=== PATIENT | male | born 1950 | race Caucasian/White ===

== ENCOUNTER 2018-10-31 12:02 | Outpatient (CLI) | payer MEDICARE, OTHER ==
[2018-10-31 18:51] LABS: BASOPHILS % (AUTO) 0.6 %; EOSINOPHILS # (AUTO) 0.1 10^3/uL (0.0-0.7); EOSINOPHILS % (AUTO) 1.9 %; HGB - HEMOGLOBIN 16.7 g/dL (14.0-18.0); LYMPHOCYTES # (AUTO) 1.8 10^3/uL (1.5-3.5); LYMPHOCYTES % (AUTO) 28.7 %; MEAN CORPUSCULAR HEMOGLOBIN 30.7 pg (27.0-31.0); MEAN CORPUSCULAR HGB CONC 33.2 g/dL (32.0-36.0); MEAN CORPUSCULAR VOLUME 92.6 fL (80.0-94.0); MEAN PLATELET VOLUME 8.9 fL (7.4-11.4); MONOCYTES # (AUTO) 0.4 10^3/uL (0.0-1.0); MONOCYTES % (AUTO) 6.9 %; NEUTROPHILS # (AUTO) 3.8 10^3/uL (1.5-6.6); NEUTROPHILS % (AUTO) 61.9 %; PLT - PLATELET COUNT 243 10^3/uL (130-450); RED BLOOD COUNT 5.43 10^6/uL (4.70-6.10); RED CELL DISTRIBUTION WIDTH 13.9 % (12.0-15.0); WHITE BLOOD COUNT 6.1 x10^3/uL (4.8-10.8)
[2018-10-31 19:10] LABS: ALBUMIN 4.8 g/dL (3.2-5.5); ALBUMIN/GLOBULIN RATIO 1.5 (1.0-2.2); ALKALINE PHOSPHATASE 81 IU/L (42-121); ALT ALANINE AMINOTRANSFERASE 23 IU/L (10-60); AST ASPARTATE AMINOTRANSFERASE 31 IU/L (10-42); BILIRUBIN,TOTAL 1.1 mg/dL (0.2-1.0); BUN - BLOOD UREA NITROGEN 18 mg/dL (6-20); CALCIUM 9.3 mg/dL (8.5-10.3); CARBON DIOXIDE - CO2 24 mmol/L (21-32); CHLORIDE 104 mmol/L (101-111); CHOL/HDL RATIO 4.7 (<5.0); CHOLESTEROL 247 mg/dL; GFR - MDRD 75 (>89); GLUCOSE 105 mg/dL (70-100); HDL CHOLESTEROL 53 mg/dL; LDL CHOLESTEROL,CALCULATED 168 mg/dL; LDL/HDL RATIO 3.2 (<3.6); SODIUM 134 mmol/L (135-145); TOTAL PROTEIN 7.9 g/dL (6.7-8.2); VLDL CHOLESTEROL 26 mg/dL
== END 2018-10-31 23:59 | disposition home or self-care (01) ==
LOC: LAB.WCP 12:02
PROVIDERS: ATTEND Nurse Practitioner
DX: Z00.00 Encounter for general adult medical examination without abnormal findings (principal); Z13.220 Encounter for screening for lipoid disorders; Z12.5 Encounter for screening for malignant neoplasm of prostate
CPT/HCPCS: 36415; 80053; 80061; 83721; 84153; 84443; 85025

== ENCOUNTER 2020-02-06 08:00 | Outpatient (CLI) | payer MEDICARE, OTHER | END 2020-02-06 23:59 | disposition home or self-care (01) | LOC: LAB.R 08:00 | PROVIDERS: ATTEND Nurse Practitioner | DX: J06.9 Acute upper respiratory infection, unspecified (principal) | CPT/HCPCS: 81599; U0002 ==

== ENCOUNTER 2020-08-27 13:02 | Emergency (ER) | payer MEDICARE, OTHER ==
[2020-08-27] MEDS ORDERED: RABIES VACCINE 2.5 UNIT SYRINGE IM ONE (13:37)
[2020-08-27] MEDS ORDERED: RABIES IMMUNE GLOBULIN 300 UNITS/2 ML IM STA (13:37)
--- NOTE | 2020-08-27 13:42 | ED Physician Documentation ---
History of Present Illness - Stated complaint Stated Complaint: BAT EXPOSURE - Chief complaint Chief Complaint: General - Additonal information Additional information: 69-year-old male presents to the emergency department for evaluation and t reatment of what he feels is a bat bite on his left medial ankle. He reports this morning he was in his barn attempting to grab something from a shelf. He felt a sharp bite or sting on the left ankle and did not think anything of it. When he walked back to the house he felt his ankle was more painful. He looked down and saw 2 small what he feels are puncture wounds. He discussed this incident with his neighbor and the neighbor felt he was likely bitten by a bat. It should be noted that his neighbor recently received the rabies vaccine and immunoglobulin after he was bitten by a bat when he reached into a wood pile. This gentleman has no history of previous rabies vaccination or bat exposure. He denies any history of coronary artery disease or diabetes. He takes no routinely prescribed medications. He otherwise feels well at this time Review of Systems Constitutional: reports: Reviewed and negative Eyes: reports: Reviewed and negative Ears: reports: Reviewed and negative Nose: reports: Reviewed and negative Throat: reports: Reviewed and negative Cardiac: reports: Reviewed and negative Respiratory: reports: Reviewed and negative GI: reports: Reviewed and negative : reports: Reviewed and negative Skin: reports: Lesions (left medial ankle) Musculoskeletal: reports: Neck pain Neurologic: reports: Reviewed and negative PD PAST MEDICAL HISTORY - Past Surgical History Past Surgical History: No - Allergies Allergies/Adverse Reactions: Allergies Allergy/AdvReac Type Severity Reaction Status Date / Time No Known Drug Allergies Allergy Verified 08/27/20 13:09 - Social History Does the pt smoke?: No Smoking Status: Never smoker Does the pt drink ETOH?: Yes Does the pt have substance abuse?: No - Immunizations Immunizations are current?: Yes - POLST Patient has POLST: No PD ED PE NORMAL - General General: Alert and oriented X 3, No acute distress - HEENT HEENT: PERRL - Cardiac Cardiac: RRR, No murmur - Respiratory Respiratory: Clear bilaterally - Abdomen Abdomen: Normal bowel sounds, Soft, Non tender, Non distended - Derm Derm: Normal color, Warm and dry, Other (2 small pinpoint lesions about 0.25 cm apart on left medial malleolous. no surrounding swelling, erythema, ecchymosis or blood) - Extremities Extremities: No deformity - Neuro Neuro: Alert and oriented X 3 Results - Vitals Vitals: Vital Signs - 24 hr 08/27/20 13:10 Temperature 36.8 C Heart Rate 71 Respiratory 16 Rate Blood Pressure 178/85 H O2 Saturation 96 Oxygen O2 Source Room air PD MEDICAL DECISION MAKING - ED course Complexity details: re-evaluated patient, considered differential, d/w patient ED course: 69-year-old male presents to the emergency department following what he feels was a bat bite or exposure on his left medial ankle. Here in the emergency department I personally administered the rabies immunoglobulin 1 mL subcutaneously around the site of the suspected bat bite. I also administered the rest of the volume 10.4 mL in separate spaces on his left leg the left calf and thigh. RN administered the rabies vaccine in his right arm. Patient has been given a written prescription for the remaining postexposure vaccines that he may be able to fill at [facility]. Patient was notified that if he is unable to fill the vaccines on the dates prescribed he is to return to the emergency department. Departure - Departure Disposition: 01 Home, Self Care Clinical Impression: Exposure to bat without known bite Condition: Stable Record reviewed to determine appropriate education?: Yes Comments: Glen I hope that you remain well. Today in the emergency department we have initiated you on the post bat exposure prophylaxis. You received the rabies immunoglobulin and multiple separate injections in your left leg. You also received the rabies vaccine in your right arm. It is important that you go to [facility] on August 30, , and the in order to receive your 3 remaining rabies vaccinations. If for what ever reason [facility] is unable to fill the rabies vaccine then please return to the emergency department.
[2020-08-27 14:31] VITALS: BP 185/99
== END 2020-08-27 14:31 | disposition home or self-care (01) ==
LOC: ED 13:02
DX: Z20.3 Contact with and (suspected) exposure to rabies (principal)
CPT/HCPCS: 90471; 96372; 99283

== ENCOUNTER 2020-08-30 10:21 | Emergency (ER) | payer MEDICARE, OTHER ==
[2020-08-30] MEDS ORDERED: RABIES VACCINE 2.5 UNIT SYRINGE IM ONE (10:26)
--- NOTE | 2020-08-30 10:58 | ED Physician Documentation ---
History of Present Illness - Stated complaint Stated Complaint: BAT EXPOSURE - Chief complaint Chief Complaint: General - History obtained from History obtained from: Patient - History of Present Illness Timing: How many days ago (3) - Additonal information Additional information: 69-year-old male with a bat bite to his ankle 3 days ago had his initial dose of RabAvert adn immunoglobulin given in the emergency department and he was instructed to get the further doses at [facility] and the patient has made arrangements to do this but they will not have the dose available until Tuesday. He is here for his day 3 dose. He has no specific new symptoms and otherwise feels well. Review of Systems Constitutional: denies: Fever Eyes: denies: Decreased vision Ears: denies: Ear pain Nose: denies: Congestion Respiratory: denies: Cough GI: denies: Vomiting, Diarrhea PD PAST MEDICAL HISTORY - Past Medical History Cardiovascular: None Respiratory: None Neuro: None Endocrine/Autoimmune: None GI: None : None HEENT: None Psych: None Musculoskeletal: None Derm: None - Past Surgical History Past Surgical History: Yes General: Appendectomy Ortho: Arthroscopic surgery - Allergies Allergies/Adverse Reactions: Allergies Allergy/AdvReac Type Severity Reaction Status Date / Time No Known Drug Allergies Allergy Verified 08/27/20 13:09 - Social History Does the pt smoke?: No Smoking Status: Never smoker Does the pt drink ETOH?: Yes Does the pt have substance abuse?: No - Immunizations Immunizations are current?: Yes - POLST Patient has POLST: No PD ED PE NORMAL - Vitals Vital signs reviewed: Yes (hypertensive ) - General General: Alert and oriented X 3, No acute distress, Well developed/nourished - HEENT HEENT: Atraumatic, PERRL - Respiratory Respiratory: No respiratory distress - Derm Derm: Normal color, Warm and dry, No rash - Extremities Extremities: No deformity, No edema - Neuro Neuro: Alert and oriented X 3, scientist electronics 2-12 intact, No motor deficit, No sensory deficit, Normal speech Eye Opening: Spontaneous Motor: Obeys Commands Verbal: Oriented GCS Score: 15 - Psych Psych: Normal mood, Normal affect Results - Vitals Vitals: Vital Signs - 24 hr 08/30/20 08/30/20 10:35 10:45 Temperature 36.8 C Heart Rate 68 65 Respiratory 16 Rate Blood Pressure 187/110 H 180/116 H O2 Saturation 97 95 Oxygen O2 Source Room air PD MEDICAL DECISION MAKING - ED course Complexity details: considered differential, d/w patient ED course: 69-year-old male with a bat exposure is administered a second dose of RabAvert. 2.5units Departure - Departure Disposition: 01 Home, Self Care Clinical Impression: Exposure to bat without known bite Condition: Stable Instructions: Rabies Vaccine suspension for injection Follow-Up: Margarita Latif ARNP, [facility] [Primary Care Provider] -
[2020-08-30 11:18] VITALS: BP 170/110
== END 2020-08-30 11:17 | disposition home or self-care (01) ==
LOC: ED 10:21
DX: Z20.3 Contact with and (suspected) exposure to rabies (principal)
CPT/HCPCS: 90471; 99283

== ENCOUNTER 2020-09-03 11:12 | Emergency (ER) | payer MEDICARE, OTHER ==
[2020-09-03 11:31] VITALS: BP 174/95
[2020-09-03] MEDS ORDERED: RABIES VACCINE 2.5 UNIT SYRINGE IM ONE (11:34)
--- NOTE | 2020-09-03 11:40 | ED Physician Documentation ---
History of Present Illness - Stated complaint Stated Complaint: BAT EXPOSURE/FOLLOW UP - Chief complaint Chief Complaint: General - Additonal information Additional information: 69-year-old male presents to the emergency department for continuation of his rabies vaccination series. He was seen initially on August 27 for what he felt was a bat bite on his left medial ankle. Initial visit included rabies immunoglobulin and the vaccine. He returned on 30 August and is here today for the 3rd of the 4 total rabies vaccinations he will require otherwise Patient reports feeling well otherwise. Review of Systems Constitutional: reports: Reviewed and negative Ears: reports: Reviewed and negative Nose: reports: Reviewed and negative Throat: reports: Reviewed and negative Cardiac: reports: Reviewed and negative Respiratory: reports: Reviewed and negative GI: reports: Reviewed and negative : reports: Reviewed and negative Skin: denies: Lesions Musculoskeletal: reports: Reviewed and negative PD PAST MEDICAL HISTORY - Past Medical History Cardiovascular: None Respiratory: None Neuro: None Endocrine/Autoimmune: None GI: None : None HEENT: None Psych: None Musculoskeletal: None Derm: None - Past Surgical History Past Surgical History: Yes General: Appendectomy Ortho: Arthroscopic surgery - Allergies Allergies/Adverse Reactions: Allergies Allergy/AdvReac Type Severity Reaction Status Date / Time No Known Drug Allergies Allergy Verified 09/03/20 11:30 - Social History Does the pt smoke?: No Smoking Status: Never smoker Does the pt drink ETOH?: Yes Does the pt have substance abuse?: No - Immunizations Immunizations are current?: Yes - POLST Patient has POLST: No PD ED PE NORMAL - General General: Alert and oriented X 3, No acute distress - HEENT HEENT: PERRL - Cardiac Cardiac: RRR, No murmur - Derm Derm: Warm and dry Results - Vitals Vitals: Vital Signs - 24 hr 09/03/20 11:20 Temperature 36.6 C Heart Rate 65 Respiratory 16 Rate Blood Pressure 174/95 H O2 Saturation 98 Oxygen O2 Source Room air PD MEDICAL DECISION MAKING - ED course Complexity details: d/w patient ED course: Patient received his third of for ultimate rabies vaccinations today. He will require the final one on September 10. Patient is well otherwise. Departure - Departure Disposition: 01 Home, Self Care Clinical Impression: Rabies exposure Condition: Stable Record reviewed to determine appropriate education?: Yes Comments: You received your third of the total four required doses of rabies vaccination today. Your final dose should be administered on September 10 here in the emergency department. I wish you well
== END 2020-09-03 12:05 | disposition home or self-care (01) ==
LOC: ED 11:12
DX: Z29.14 Encounter for prophylactic rabies immune globulin (principal); Z20.3 Contact with and (suspected) exposure to rabies
CPT/HCPCS: 90471; 99283

== ENCOUNTER 2020-09-10 09:29 | Outpatient (CLI) | payer MEDICARE, OTHER ==
[2020-09-10 09:49] LABS: BASOPHILS % (AUTO) 0.5 %; EOSINOPHILS # (AUTO) 0.2 10^3/uL (0.0-0.7); EOSINOPHILS % (AUTO) 4.2 %; HGB - HEMOGLOBIN 16.5 g/dL (14.0-18.0); LYMPHOCYTES # (AUTO) 1.4 10^3/uL (1.5-3.5); LYMPHOCYTES % (AUTO) 24.2 %; MEAN CORPUSCULAR HEMOGLOBIN 30.9 pg (27.0-31.0); MEAN CORPUSCULAR VOLUME 88.2 fL (80.0-94.0); MEAN PLATELET VOLUME 9.7 fL (7.4-11.4); MONOCYTES # (AUTO) 0.4 10^3/uL (0.0-1.0); MONOCYTES % (AUTO) 7.4 %; NEUTROPHILS # (AUTO) 3.6 10^3/uL (1.5-6.6); NEUTROPHILS % (AUTO) 63.3 %; PLT - PLATELET COUNT 271 10^3/uL (130-450); RED BLOOD COUNT 5.34 10^6/uL (4.70-6.10); RED CELL DISTRIBUTION WIDTH 12.9 % (12.0-15.0); WHITE BLOOD COUNT 5.7 x10^3/uL (4.8-10.8)
[2020-09-10 10:12] LABS: ALBUMIN 4.3 g/dL (3.2-5.5); ALBUMIN/GLOBULIN RATIO 1.4 (1.0-2.2); ALKALINE PHOSPHATASE 68 IU/L (42-121); ALT ALANINE AMINOTRANSFERASE 22 IU/L (10-60); AST ASPARTATE AMINOTRANSFERASE 26 IU/L (10-42); BILIRUBIN,TOTAL 1.2 mg/dL (0.2-1.0); BUN - BLOOD UREA NITROGEN 15 mg/dL (6-20); CALCIUM 9.4 mg/dL (8.5-10.3); CARBON DIOXIDE - CO2 24 mmol/L (21-32); CHLORIDE 103 mmol/L (101-111); CHOL/HDL RATIO 4.5 (<5.0); CHOLESTEROL 230 mg/dL; CREATININE 1.1 mg/dL (0.6-1.2); GLUCOSE 125 mg/dL (70-100); HDL CHOLESTEROL 51 mg/dL; LDL CHOLESTEROL,CALCULATED 158 mg/dL; LDL/HDL RATIO 3.1 (<3.6); SODIUM 136 mmol/L (135-145); TOTAL PROTEIN 7.4 g/dL (6.7-8.2); VLDL CHOLESTEROL 21 mg/dL
== END 2020-09-10 09:30 | disposition home or self-care (01) ==
LOC: LAB 09:29
PROVIDERS: ATTEND Nurse Practitioner
DX: R73.01 Impaired fasting glucose (principal); E78.5 Hyperlipidemia, unspecified; Z85.820 Personal history of malignant melanoma of skin; N40.0 Benign prostatic hyperplasia without lower urinary tract symptoms
CPT/HCPCS: 36415; 80053; 80061; 83721; 84153; 84443; 85025

== ENCOUNTER 2020-09-10 09:43 | Emergency (ER) | payer MEDICARE, OTHER ==
[2020-09-10] MEDS ORDERED: RABIES VACCINE 2.5 UNIT SYRINGE IM ONE (11:13)
--- NOTE | 2020-09-10 11:15 | ED Physician Documentation ---
History of Present Illness - Stated complaint Stated Complaint: RABIES SHOT - Chief complaint Chief Complaint: General - History obtained from History obtained from: Patient - Additonal information Additional information: 69-year-old gentleman presents for the final in the series of rabies vaccinations after a Bat exposure. . He has had no ill effects from the treatments. Review of Systems Constitutional: reports: Reviewed and negative Eyes: reports: Reviewed and negative Ears: reports: Reviewed and negative Throat: reports: Reviewed and negative PD PAST MEDICAL HISTORY - Past Medical History Cardiovascular: None Respiratory: None Neuro: None Endocrine/Autoimmune: None GI: None : None HEENT: None Psych: None Musculoskeletal: None Derm: None - Past Surgical History Past Surgical History: Yes General: Appendectomy Ortho: Arthroscopic surgery - Allergies Allergies/Adverse Reactions: Allergies Allergy/AdvReac Type Severity Reaction Status Date / Time No Known Drug Allergies Allergy Verified 09/10/20 10:27 - Social History Does the pt smoke?: No Smoking Status: Never smoker Does the pt drink ETOH?: Yes Does the pt have substance abuse?: No - Immunizations Immunizations are current?: Yes - POLST Patient has POLST: No PD ED PE NORMAL - Vitals Vital signs reviewed: Yes - General General: Alert and oriented X 3, No acute distress - Neuro Neuro: Alert and oriented X 3, Normal speech - Psych Psych: Normal mood, Normal affect Results - Vitals Vitals: Vital Signs - 24 hr 09/10/20 10:18 Temperature 36.6 C Heart Rate 69 Respiratory 18 Rate Blood Pressure 149/84 H O2 Saturation 95 Oxygen O2 Source Room air Departure - Departure Disposition: 01 Home, Self Care Clinical Impression: Exposure to bat without known bite Condition: Good Record reviewed to determine appropriate education?: Yes Instructions: Rabies Comments: This should should complete your vaccination series for rabies. Recognize that if you were to have other rabies exposures in the future you may need boosters. Return as needed.
[2020-09-10 11:39] VITALS: BP 157/90
== END 2020-09-10 11:47 | disposition home or self-care (01) ==
LOC: ED 09:43
DX: Z29.14 Encounter for prophylactic rabies immune globulin (principal); Z20.3 Contact with and (suspected) exposure to rabies; R73.01 Impaired fasting glucose; E78.5 Hyperlipidemia, unspecified; Z85.820 Personal history of malignant melanoma of skin; N40.0 Benign prostatic hyperplasia without lower urinary tract symptoms
CPT/HCPCS: 36415; 80053; 80061; 83721; 84153; 84443; 85025

== ENCOUNTER 2020-09-23 14:58 | Outpatient (CLI) | payer MEDICARE, OTHER ==
[2020-09-23 16:45] LABS: HEMOGLOBIN A1c% 5.6 % (4.27-6.07)
== END 2020-09-23 14:59 | disposition home or self-care (01) ==
LOC: LAB 14:58
PROVIDERS: ATTEND Nurse Practitioner
DX: R73.01 Impaired fasting glucose (principal)
CPT/HCPCS: 36415; 83036

== ENCOUNTER 2023-05-27 05:56 | Emergency (ER) | payer MEDICARE, OTHER ==
--- OUTSIDE RECORDS SUMMARY | 2023-05-27 06:07 | EXTERNAL MEDICAL SUMMARY RPT | Continuity of Care Document ---
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 [facility] 2023-03-22 00:00 Family history of ma lignant neoplasm of prostate in [facility] 2023-03-22 00:00 History of renal calculi [facility] 2023-03-22 08:09 Benign prostatic hyp erplasia without lower urinary tract [facility] 2023-03-23 13:58 Benign prostatic hyp erplasia without lower urinary tract [facility] 2023-03-24 13:11 Benign prostatic hyp erplasia without lower urinary tract [facility] 2023-04-19 12:39 Other obstructive and reflux ur opathy [facility] 2023-04-19 12:39 Benign prostatic hyp erplasia with lower urinary tract [facility] Results/Labs test date author facility value unit interpretation Result panel 1 (unknown) (no date) (unknown) [facility] (no value) (units unknown) (unknown) Result panel 2 (unknown) (no date) (unknown) (unknown) (no value) (units unknown) (unknown) (unknown) (no date) (unknown) (unknown) 03/22/23 (units unknown) (unknown) (unknown) (no date) (unknown) (unknown) 72 y/o M prese nts to clinic for New Patient. Prostate Issues. (units unknown) (unknown) (unknown) (no date) (unknown) (unknown) Age/Sex: 72 / M Date of Service: (units unknown) (unknown) (unknown) (no date) (unknown) (unknown) Allergies (units unknown) (unknown) (unknown) (no date) (unknown) (unknown) [place] [address] (units unknown) (unknown) (unknown) (no date) (unknown) (unknown) Anesthesia (units unknown) (unknown) (unknown) (no date) (unknown) (unknown) Attending Dr: Michell Ramirez MD (units unknown) (unknown) (unknown) (no date) (unknown) (unknown) BPH (benign prostatic hyperplasia) () (units unknown) (unknown) (unknown) (no date) (unknown) (unknown) Benign essenti al hypertension () (units unknown) (unknown) (unknown) (no date) (unknown) (unknown) : 1 Acct:[id number] (units unknown) (unknown) (unknown) (no date) (unknown) (unknown) Dept at . (units unknown) (unknown) (unknown) (no date) (unknown) (unknown) Documented By: Michell Ramirez MD 03/22/23 0759 (units unknown) (unknown) (unknown) (no date) (unknown) (unknown) Draft (units unknown) (unknown) (unknown) (no date) (unknown) (unknown) Family History (units unknown) (unknown) (unknown) (no date) (unknown) (unknown) Father d Cancer (units unknown) (unknown) (unknown) (no date) (unknown) (unknown) Grandmother Stroke (units unknown) (unknown) (unknown) (no date) (unknown) (unknown) Hearing loss () (units unknown) (unknown) (unknown) (no date) (unknown) (unknown) History of appendectomy (-1975) (units unknown) (unknown) (unknown) (no date) (unknown) (unknown) History of arthroscopic knee surgery (-1992) (units unknown) (unknown) (unknown) (no date) (unknown) (unknown) History of arthroscopic surgery of shoulder (-1984) (units unknown) (unknown) (unknown) (no date) (unknown) (unknown) Hyperlipidemia (unit s unknown) (unknown) (unknown) (no date) (unknown) (unknown) IFG (impaired fasting glucose) (units unknown) (unknown) (unknown) (no date) (unknown) (unknown) Intake Note: (units unknown) (unknown) (unknown) (no date) (unknown) (unknown) Intake perform ed by: Aniya Carpenter (units unknown) (unknown) (unknown) (no date) (unknown) (unknown) Intake (units unknown) (unknown) (unknown) (no date) (unknown) (unknown) Intake- Cl[facility] Staff (units unknown) (unknown) (unknown) (no date) (unknown) (unknown) [facility] (unit s unknown) (unknown) (unknown) (no date) (unknown) (unknown) Kidney stones (-2013) (units unknown) (unknown) (unknown) (no date) (unknown) (unknown) Loc: [facility] (units unknown) (unknown) (unknown) (no date) (unknown) (unknown) MR#: [id number] (uni ts unknown) (unknown) (unknown) (no date) (unknown) (unknown) Medical Histor y (Updated 12/21/22 @ 14:02 by Giovana Osman DO) (units unknown) (unknown) (unknown) (no date) (unknown) (unknown) Melanoma (-11/2014) (units unknown) (unknown) (unknown) (no date) (unknown) (unknown) Melanoma (units unknown) (unknown) (unknown) (no date) (unknown) (unknown) Mother d Hypertension (units unknown) (unknown) (unknown) (no date) (unknown) (unknown) Mumps (-1959) (units unknown) (unknown) (unknown) (no date) (unknown) (unknown) No Known Drug Allergies Allergy (Unverified 12/30/22 15:21) (units unknown) (unknown) (unknown) (no date) (unknown) (unknown) PFSH (units unknown) (unknown) (unknown) (no date) (unknown) (unknown) Patient: Glen Dutta (units unknown) (unknown) (unknown) (no date) (unknown) (unknown) Pulmonary embo li (-2016) (units unknown) (unknown) (unknown) (no date) (unknown) (unknown) Reason For Visit (un its unknown) (unknown) (unknown) (no date) (unknown) (unknown) Retinal detachment ( units unknown) (unknown) (unknown) (no date) (unknown) (unknown) Signed By: (units unknown) (unknown) (unknown) (no date) (unknown) (unknown) Smoking Status : Unknown if ever smoked (units unknown) (unknown) (unknown) (no date) (unknown) (unknown) Social History (unit s unknown) (unknown) (unknown) (no date) (unknown) (unknown) Stroke (units unknown) (unknown) (unknown) (no date) (unknown) (unknown) Surgical Histo ry (units unknown) (unknown) (unknown) (no date) (unknown) (unknown) This note may have been all or partially generated using voice recognition (units unknown) (unknown) (unknown) (no date) (unknown) (unknown) Tobacco Status (unit s unknown) (unknown) (unknown) (no date) (unknown) (unknown) Urology Office Visit (units unknown) (unknown) (unknown) (no date) (unknown) (unknown) Visit Reasons: HR COORDINATOR-prostate issues (units unknown) (unknown) (unknown) (no date) (unknown) (unknown) have occurred. If there are any questions, please contact the Medical Records (units unknown) (unknown) (unknown) (no date) (unknown) (unknown) may occur. Occasional wrong-word or 'sound-alike' substitutions may have (units unknown) (unknown) (unknown) (no date) (unknown) (unknown) occurred due t o the inherent limitations of voice recognition software. Please (units unknown) (unknown) (unknown) (no date) (unknown) (unknown) read the note carefully and recognize, using context, where these substitutions (units unknown) (unknown) (unknown) (no date) (unknown) (unknown) software. Alth ough every effort is made to edit content, two needle machine operator errors (units unknown) (unknown) Result panel 3 (unknown) (no date) (unknown) (unknown) (no value) (units unknown) (unknown) (unknown) (no date) (unknown) (unknown) #20 mL 2 [Rx Confirmed 03/22/23] (units unknown) (unknown) (unknown) (no date) (unknown) (unknown) 12/10/22 [Rx Confirmed 03/22/23] (units unknown) (unknown) (unknown) (no date) (unknown) (unknown) 03/22/23 (units unknown) (unknown) (unknown) (no date) (unknown) (unknown) 03/22/23] (units unknown) (unknown) (unknown) (no date) (unknown) (unknown) 08:12 (units unknown) (unknown) (unknown) (no date) (unknown) (unknown) 08:14 (units unknown) (unknown) (unknown) (no date) (unknown) (unknown) 11/15/22 [Rx Confirmed 03/22/23] (units unknown) (unknown) (unknown) (no date) (unknown) (unknown) 14 (units unknown) (unknown) (unknown) (no date) (unknown) (unknown) 23 (units unknown) (unknown) (unknown) (no date) (unknown) (unknown) 3 (units unknown) (unknown) (unknown) (no date) (unknown) (unknown) 72 [facility]. Prostate Issues. (units unknown) (unknown) (unknown) (no date) (unknown) (unknown) :14 (units unknown) (unknown) (unknown) (no date) (unknown) (unknown) Age/Sex: 72 / M Date of Service: (units unknown) (unknown) (unknown) (no date) (unknown) (unknown) Allergies (units unknown) (unknown) (unknown) (no date) (unknown) (unknown) [place] [address] (units unknown) (unknown) (unknown) (no date) (unknown) (unknown) Anesthesia (units unknown) (unknown) (unknown) (no date) (unknown) (unknown) Assessment + Plan (u nits unknown) (unknown) (unknown) (no date) (unknown) (unknown) Attending Dr: Michell Ramirez MD (units unknown) (unknown) (unknown) (no date) (unknown) (unknown) BP 153/86 H (units unknown) (unknown) (unknown) (no date) (unknown) (unknown) BPH (benign prostatic hyperplasia) () (units unknown) (unknown) (unknown) (no date) (unknown) (unknown) Benign essenti al hypertension () (units unknown) (unknown) (unknown) (no date) (unknown) (unknown) Billing- Post Void Residual: Post Void Residual- 17389 (units unknown) (unknown) (unknown) (no date) (unknown) (unknown) Bladder volume : PVR = 10ml (units unknown) (unknown) (unknown) (no date) (unknown) (unknown) Blood Pressure Location Lt brachial (units unknown) (unknown) (unknown) (no date) (unknown) (unknown) Confirmed 03/22/23] (units unknown) (unknown) (unknown) (no date) (unknown) (unknown) : 1 Acct:[id number] (units unknown) (unknown) (unknown) (no date) (unknown) (unknown) Dept at . (units unknown) (unknown) (unknown) (no date) (unknown) (unknown) Documented By: Michell Ramirez MD 03/22/23 0759 (units unknown) (unknown) (unknown) (no date) (unknown) (unknown) Draft (units unknown) (unknown) (unknown) (no date) (unknown) (unknown) Family History (units unknown) (unknown) (unknown) (no date) (unknown) (unknown) Father d Cancer (units unknown) (unknown) (unknown) (no date) (unknown) (unknown) Grandmother Stroke (units unknown) (unknown) (unknown) (no date) (unknown) (unknown) Hearing loss () (units unknown) (unknown) (unknown) (no date) (unknown) (unknown) History of appendectomy (-1975) (units unknown) (unknown) (unknown) (no date) (unknown) (unknown) History of arthroscopic knee surgery (-1992) (units unknown) (unknown) (unknown) (no date) (unknown) (unknown) History of arthroscopic surgery of shoulder (-1984) (units unknown) (unknown) (unknown) (no date) (unknown) (unknown) Hyperlipidemia (unit s unknown) (unknown) (unknown) (no date) (unknown) (unknown) IFG (impaired fasting glucose) (units unknown) (unknown) (unknown) (no date) (unknown) (unknown) Intake Note: (units unknown) (unknown) (unknown) (no date) (unknown) (unknown) Intake perform ed by: Aniya Carpenter (units unknown) (unknown) (unknown) (no date) (unknown) (unknown) Intake (units unknown) (unknown) (unknown) (no date) (unknown) (unknown) Intake- Clinc[facility] Staff (units unknown) (unknown) (unknown) (no date) (unknown) (unknown) [facility] (unit s unknown) (unknown) (unknown) (no date) (unknown) (unknown) Kidney stones (-2013) (units unknown) (unknown) (unknown) (no date) (unknown) (unknown) Loc: [facility] (units unknown) (unknown) (unknown) (no date) (unknown) (unknown) MR#: [id number] (uni ts unknown) (unknown) (unknown) (no date) (unknown) (unknown) Medical Histor y (Updated 03/22/23 @ 08:03 by Aniya Carpenter RN) (units unknown) (unknown) (unknown) (no date) (unknown) (unknown) Medications (units unknown) (unknown) (unknown) (no date) (unknown) (unknown) Melanoma (-11/2014) (units unknown) (unknown) (unknown) (no date) (unknown) (unknown) Melanoma (units unknown) (unknown) (unknown) (no date) (unknown) (unknown) Mother d Hypertension (units unknown) (unknown) (unknown) (no date) (unknown) (unknown) Mumps (-1959) (units unknown) (unknown) (unknown) (no date) (unknown) (unknown) No Known Drug Allergies Allergy (Unverified 03/22/23 08:06) (units unknown) (unknown) (unknown) (no date) (unknown) (unknown) Office Procedures (u nits unknown) (unknown) (unknown) (no date) (unknown) (unknown) Orders (units unknown) (unknown) (unknown) (no date) (unknown) (unknown) Orders: (units unknown) (unknown) (unknown) (no date) (unknown) (unknown) Oxygen Deliver y Method room air (units unknown) (unknown) (unknown) (no date) (unknown) (unknown) PFSH (units unknown) (unknown) (unknown) (no date) (unknown) (unknown) POC Urine Dip Today N40.0 - Benign prostatic hyperplasia without lower urinary (units unknown) (unknown) (unknown) (no date) (unknown) (unknown) Patient: Glen Dutta (units unknown) (unknown) (unknown) (no date) (unknown) (unknown) Position Sitting (un its unknown) (unknown) (unknown) (no date) (unknown) (unknown) Procedure perf ormed by: Aniya Carpenter (units unknown) (unknown) (unknown) (no date) (unknown) (unknown) Pulmonary eulalioo reynold (-2016) (units unknown) (unknown) (unknown) (no date) (unknown) (unknown) Pulse 71 (units unknown) (unknown) (unknown) (no date) (unknown) (unknown) Pulse Oximetry (%) 97 (units unknown) (unknown) (unknown) (no date) (unknown) (unknown) Pulse Source Monitor (units unknown) (unknown) (unknown) (no date) (unknown) (unknown) Reason For Visit (un its unknown) (unknown) (unknown) (no date) (unknown) (unknown) Residual: post void (units unknown) (unknown) (unknown) (no date) (unknown) (unknown) Respiration 16 (unit s unknown) (unknown) (unknown) (no date) (unknown) (unknown) Results (units unknown) (unknown) (unknown) (no date) (unknown) (unknown) Retinal detachment ( units unknown) (unknown) (unknown) (no date) (unknown) (unknown) Signed By: (units unknown) (unknown) (unknown) (no date) (unknown) (unknown) Skin cancer (units unknown) (unknown) (unknown) (no date) (unknown) (unknown) Smoking Status : Unknown if ever smoked (units unknown) (unknown) (unknown) (no date) (unknown) (unknown) Social History (Updated 03/22/23 @ 08:04 by Aniya Carpenter RN) (units unknown) (unknown) (unknown) (no date) (unknown) (unknown) Stroke (units unknown) (unknown) (unknown) (no date) (unknown) (unknown) Surgical Histo ry (units unknown) (unknown) (unknown) (no date) (unknown) (unknown) This note may have been all or partially generated using voice recognition (units unknown) (unknown) (unknown) (no date) (unknown) (unknown) Tobacco Status (unit s unknown) (unknown) (unknown) (no date) (unknown) (unknown) Type(s) of exercise: aerobic (units unknown) (unknown) (unknown) (no date) (unknown) (unknown) Urine Appearan ce Clear Last Edit by Aniya Carpenter RN on 03/22/23 08:14 (units unknown) (unknown) (unknown) (no date) (unknown) (unknown) Urine Bilirubi n Negative Last Edit by Aniya Carpenter RN on 03/22/23 08:14 (units unknown) (unknown) (unknown) (no date) (unknown) (unknown) Urine Blood Negative Last Edit by Aniya Carpenter RN on 03/22/23 08:14 (units unknown) (unknown) (unknown) (no date) (unknown) (unknown) Urine Color Ye llow Last Edit by Aniya Carpenter RN on 03/22/23 08:14 (units unknown) (unknown) (unknown) (no date) (unknown) (unknown) Urine Dipstick (unit s unknown) (unknown) (unknown) (no date) (unknown) (unknown) Urine Glucose Negative mg/dL Last Edit by Aniya Carpenter RN on 03/22/23 08: (units unknown) (unknown) (unknown) (no date) (unknown) (unknown) Urine Ketones +- 5 mg/dL Last Edit by Aniya Carpenter RN on 03/22/23 08:14 (units unknown) (unknown) (unknown) (no date) (unknown) (unknown) Urine Leukocyt e Esterase Negative Last Edit by Aniya Carpenter RN on units unknown) (unknown) (unknown) (no date) (unknown) (unknown) Urine Nitrate Negative Last Edit by Aniya Carpenter RN on 03/22/23 08:14 (units unknown) (unknown) (unknown) (no date) (unknown) (unknown) Urine Protein Negative Last Edit by Aniya Carpenter RN on 03/22/23 08:14 (units unknown) (unknown) (unknown) (no date) (unknown) (unknown) Urine Specific [place] 1.025 Last Edit by Aniya Carpenter RN on 03/22/23 08 (units unknown) (unknown) (unknown) (no date) (unknown) (unknown) Urine Urobilin ogen - 0.2 mg/dL Last Edit by Aniya Carpenter RN on (units unknown) (unknown) (unknown) (no date) (unknown) (unknown) Urine pH 6.0 L ast Edit by Aniya Carpenter RN on 03/22/23 08:14 (units unknown) (unknown) (unknown) (no date) (unknown) (unknown) Urology Office Visit (units unknown) (unknown) (unknown) (no date) (unknown) (unknown) Visit Reasons: HR COORDINATOR-prostate issues (units unknown) (unknown) (unknown) (no date) (unknown) (unknown) Vitals (units unknown) (unknown) (unknown) (no date) (unknown) (unknown) atorvastatin 2 0 mg tablet (Lipitor) 20 mg PO BEDTIME cholesterol #90 tabs (units unknown) (unknown) (unknown) (no date) (unknown) (unknown) benzonatate 20 0 mg capsule 200 mg PO TID PRN cough #20 caps 12/10/22 [Rx (units unknown) (unknown) (unknown) (no date) (unknown) (unknown) fluocinolone acetonide oil 0.01 % ear drops 5 drp otic (ear) DAILY PRN itching (units unknown) (unknown) (unknown) (no date) (unknown) (unknown) frequency: 5-6 times per week (units unknown) (unknown) (unknown) (no date) (unknown) (unknown) have occurred. If there are any questions, please contact the Medical Records (units unknown) (unknown) (unknown) (no date) (unknown) (unknown) ipratropium br omide 42 mcg (0.06 %) nasal spray 2 spray intranasal TID #15 mL (units unknown) (unknown) (unknown) (no date) (unknown) (unknown) marital status : (units unknown) (unknown) (unknown) (no date) (unknown) (unknown) may occur. Occasional wrong-word or 'sound-alike' substitutions may have (units unknown) (unknown) (unknown) (no date) (unknown) (unknown) number of chil dren: 3 (units unknown) (unknown) (unknown) (no date) (unknown) (unknown) occurred due t o the inherent limitations of voice recognition software. Please (units unknown) (unknown) (unknown) (no date) (unknown) (unknown) read the note carefully and recognize, using context, where these substitutions (units unknown) (unknown) (unknown) (no date) (unknown) (unknown) software. Alth ough every effort is made to edit content, two needle machine operator errors (units unknown) (unknown) (unknown) (no date) (unknown) (unknown) tadalafil [Sarah lis] PO 11/15/22 [History Confirmed 03/22/23] (units unknown) (unknown) (unknown) (no date) (unknown) (unknown) tamsulosin 0.4 mg capsule (Flomax) 0.8 mg PO BEDTIME #60 caps 11/15/22 [Rx (units unknown) (unknown) (unknown) (no date) (unknown) (unknown) telmisartan 20 mg tablet 20 mg PO DAILY #90 tabs 02/09/23 [Rx Confirmed (units unknown) (unknown) (unknown) (no date) (unknown) (unknown) tract symptoms (unit s unknown) (unknown) Result panel 4 (unknown) (no date) (unknown) (unknown) 2.22 ng/ml (unknown ) Result panel 5 (unknown) (no date) (unknown) (unknown) (no value) (units unknown) (unknown) (unknown) (no date) (unknown) (unknown) #20 mL 2 [Rx Confirmed 03/22/23] (units unknown) (unknown) (unknown) (no date) (unknown) (unknown) (1) BPH w urin alexa obs/LUTS: (units unknown) (unknown) (unknown) (no date) (unknown) (unknown) (2) Family his tory of prostate cancer in father: (units unknown) (unknown) (unknown) (no date) (unknown) (unknown) (3) Erectile dysfunction: (units unknown) (unknown) (unknown) (no date) (unknown) (unknown) (4) History of nephrolithiasis: (units unknown) (unknown) (unknown) (no date) (unknown) (unknown) 12/10/22 [Rx Confirmed 03/22/23] (units unknown) (unknown) (unknown) (no date) (unknown) (unknown) 03/22/23 1236 (units unknown) (unknown) (unknown) (no date) (unknown) (unknown) 03/22/23 (units unknown) (unknown) (unknown) (no date) (unknown) (unknown) 03/22/23] (units unknown) (unknown) (unknown) (no date) (unknown) (unknown) 08:12 (units unknown) (unknown) (unknown) (no date) (unknown) (unknown) 08:14 (units unknown) (unknown) (unknown) (no date) (unknown) (unknown) 1. Schedule of fice cystoscopy/PUS, and update PSA. (units unknown) (unknown) (unknown) (no date) (unknown) (unknown) 11/15/22 [Rx Confirmed 03/22/23] (units unknown) (unknown) (unknown) (no date) (unknown) (unknown) 14 (units unknown) (unknown) (unknown) (no date) (unknown) (unknown) 2. Patient jerrod l retrieve historical PSA value for review and [place] (units unknown) (unknown) (unknown) (no date) (unknown) (unknown) 23 (units unknown) (unknown) (unknown) (no date) (unknown) (unknown) 3 (units unknown) (unknown) (unknown) (no date) (unknown) (unknown) 72 [facility]. Prostate Issues. (units unknown) (unknown) (unknown) (no date) (unknown) (unknown) :14 (units unknown) (unknown) (unknown) (no date) (unknown) (unknown) Abdomen-mildly protuberant soft. No palpable hernia, mass, or organomegaly. (units unknown) (unknown) (unknown) (no date) (unknown) (unknown) Age/Sex: 72 / M Date of Service: (units unknown) (unknown) (unknown) (no date) (unknown) (unknown) All systems reviewed + are unremarkable except as noted in HPI and below (units unknown) (unknown) (unknown) (no date) (unknown) (unknown) Allergies (units unknown) (unknown) (unknown) (no date) (unknown) (unknown) [place] [address] (units unknown) (unknown) (unknown) (no date) (unknown) (unknown) Anesthesia (units unknown) (unknown) (unknown) (no date) (unknown) (unknown) Assessment + Plan (u nits unknown) (unknown) (unknown) (no date) (unknown) (unknown) Attending Dr: Michell Ramirez MD (units unknown) (unknown) (unknown) (no date) (unknown) (unknown) BP 153/86 H (units unknown) (unknown) (unknown) (no date) (unknown) (unknown) BPH (benign prostatic hyperplasia) () (units unknown) (unknown) (unknown) (no date) (unknown) (unknown) BPH w urinary obs/LUTS (units unknown) (unknown) (unknown) (no date) (unknown) (unknown) Benign essenti al hypertension () (units unknown) (unknown) (unknown) (no date) (unknown) (unknown) Billing- Post Void Residual: Post Void Residual- 07663 (units unknown) (unknown) (unknown) (no date) (unknown) (unknown) Bladder volume : PVR = 10ml (units unknown) (unknown) (unknown) (no date) (unknown) (unknown) Blood Pressure Location Lt brachial (units unknown) (unknown) (unknown) (no date) (unknown) (unknown) Chest-equal an d unlabored expansion bilaterally. (units unknown) (unknown) (unknown) (no date) (unknown) (unknown) Chief Complaint (uni ts unknown) (unknown) (unknown) (no date) (unknown) (unknown) Chief Complain t: Lower urinary tract symptoms (units unknown) (unknown) (unknown) (no date) (unknown) (unknown) Code(s): (units unknown) (unknown) (unknown) (no date) (unknown) (unknown) Confirmed 03/22/23] (units unknown) (unknown) (unknown) (no date) (unknown) (unknown) Const (units unknown) (unknown) (unknown) (no date) (unknown) (unknown) Current BENITO s core is 12/22. Urinalysis today is clear. PVR is 10 cc. Most (units unknown) (unknown) (unknown) (no date) (unknown) (unknown) : 1 Acct:[id number] (units unknown) (unknown) (unknown) (no date) (unknown) (unknown) Dept at . (units unknown) (unknown) (unknown) (no date) (unknown) (unknown) Details: (units unknown) (unknown) (unknown) (no date) (unknown) (unknown) Documented By: Michell Ramirez MD 03/22/23 0759 (units unknown) (unknown) (unknown) (no date) (unknown) (unknown) Encounter documentation, and billing-10 minutes (units unknown) (unknown) (unknown) (no date) (unknown) (unknown) Erectile dysfunction type: unspecified Qualified Code(s): N52.9 - Male (units unknown) (unknown) (unknown) (no date) (unknown) (unknown) Exam Narrative (unit s unknown) (unknown) (unknown) (no date) (unknown) (unknown) Exam Narrative: (uni ts unknown) (unknown) (unknown) (no date) (unknown) (unknown) Exam (units unknown) (unknown) (unknown) (no date) (unknown) (unknown) Explained rati onale and consideration of germline testing given family history (units unknown) (unknown) (unknown) (no date) (unknown) (unknown) Explained rati onale for updated PSA and review of historical number given family (units unknown) (unknown) (unknown) (no date) (unknown) (unknown) [id number] encounter-40 minutes (units unknown) (unknown) (unknown) (no date) (unknown) (unknown) Family History (units unknown) (unknown) (unknown) (no date) (unknown) (unknown) Family history of prostate cancer in father (units unknown) (unknown) (unknown) (no date) (unknown) (unknown) Father d Cancer (units unknown) (unknown) (unknown) (no date) (unknown) (unknown) Genitalia-norm al appearing adult circumcised phallus. Meatus is orthotopic and (units unknown) (unknown) (unknown) (no date) (unknown) (unknown) Grandmother Stroke (units unknown) (unknown) (unknown) (no date) (unknown) (unknown) HPI (units unknown) (unknown) (unknown) (no date) (unknown) (unknown) He is a well-developed, well-nourished, fit appearing elderly fellow younger (units unknown) (unknown) (unknown) (no date) (unknown) (unknown) He states that he has been at a point for some time to seriously consider (units unknown) (unknown) (unknown) (no date) (unknown) (unknown) Head/neck-scle ra clear and pupils are round and equal bilaterally. No visible (units unknown) (unknown) (unknown) (no date) (unknown) (unknown) Health EHR. (units unknown) (unknown) (unknown) (no date) (unknown) (unknown) Hearing loss () (units unknown) (unknown) (unknown) (no date) (unknown) (unknown) Heart-normal s inus rhythm. (units unknown) (unknown) (unknown) (no date) (unknown) (unknown) History of appendectomy (-1975) (units unknown) (unknown) (unknown) (no date) (unknown) (unknown) History of arthroscopic knee surgery () (units unknown) (unknown) (unknown) (no date) (unknown) (unknown) History of arthroscopic surgery of shoulder () (units unknown) (unknown) (unknown) (no date) (unknown) (unknown) History of nephrolithiasis (units unknown) (unknown) (unknown) (no date) (unknown) (unknown) Hyperlipidemia (unit s unknown) (unknown) (unknown) (no date) (unknown) (unknown) IFG (impaired fasting glucose) (units unknown) (unknown) (unknown) (no date) (unknown) (unknown) Intake Note: (units unknown) (unknown) (unknown) (no date) (unknown) (unknown) Intake perform ed by: Aniya Carpenter (units unknown) (unknown) (unknown) (no date) (unknown) (unknown) Intake (units unknown) (unknown) (unknown) (no date) (unknown) (unknown) Intake- [facility] plasc[facility] Staff (units unknown) (unknown) (unknown) (no date) (unknown) (unknown) [facility] (unit s unknown) (unknown) (unknown) (no date) (unknown) (unknown) Loc: [facility] (units unknown) (unknown) (unknown) (no date) (unknown) (unknown) MR#: [id number] (uni ts unknown) (unknown) (unknown) (no date) (unknown) (unknown) Medical Histor y (Updated 03/22/23 @ 12:33 by Michell Ramirez MD) (units unknown) (unknown) (unknown) (no date) (unknown) (unknown) Medications (units unknown) (unknown) (unknown) (no date) (unknown) (unknown) Melanoma (-11/2014) (units unknown) (unknown) (unknown) (no date) (unknown) (unknown) Melanoma (units unknown) (unknown) (unknown) (no date) (unknown) (unknown) Mother d Hypertension (units unknown) (unknown) (unknown) (no date) (unknown) (unknown) Mumps (-1959) (units unknown) (unknown) (unknown) (no date) (unknown) (unknown) N40.1 - Benign prostatic hyperplasia with lower urinary tract symptoms; N13.8 (units unknown) (unknown) (unknown) (no date) (unknown) (unknown) N52.9 - Male erectile dysfunction, unspecified (units unknown) (unknown) (unknown) (no date) (unknown) (unknown) No Known Drug Allergies Allergy (Unverified 03/22/23 08:06) (units unknown) (unknown) (unknown) (no date) (unknown) (unknown) Office Procedures (u nits unknown) (unknown) (unknown) (no date) (unknown) (unknown) Orders (units unknown) (unknown) (unknown) (no date) (unknown) (unknown) Orders: (units unknown) (unknown) (unknown) (no date) (unknown) (unknown) Other obstruct venecia and reflux uropathy (units unknown) (unknown) (unknown) (no date) (unknown) (unknown) Oxygen Deliver y Method room air (units unknown) (unknown) (unknown) (no date) (unknown) (unknown) PFSH (units unknown) (unknown) (unknown) (no date) (unknown) (unknown) POC Urine Dip Today N40.0 - Benign prostatic hyperplasia without lower urinary (units unknown) (unknown) (unknown) (no date) (unknown) (unknown) Patient: Glen Dutta (units unknown) (unknown) (unknown) (no date) (unknown) (unknown) Plan (units unknown) (unknown) (unknown) (no date) (unknown) (unknown) Position Sitting (un its unknown) (unknown) (unknown) (no date) (unknown) (unknown) Procedure perf ormed by: Aniya Carpenter (units unknown) (unknown) (unknown) (no date) (unknown) (unknown) Prostate Speci fic Antigen Today N40.0 - Benign prostatic hyperplasia without (units unknown) (unknown) (unknown) (no date) (unknown) (unknown) Pulmonary embo li (-2017) (units unknown) (unknown) (unknown) (no date) (unknown) (unknown) Pulse 71 (units unknown) (unknown) (unknown) (no date) (unknown) (unknown) Pulse Oximetry (%) 97 (units unknown) (unknown) (unknown) (no date) (unknown) (unknown) Pulse Source Monitor (units unknown) (unknown) (unknown) (no date) (unknown) (unknown) Qualifiers: (units unknown) (unknown) (unknown) (no date) (unknown) (unknown) Quality life s core is 5/6 (unhappy). Greatest complaints are that of (units unknown) (unknown) (unknown) (no date) (unknown) (unknown) ROS (units unknown) (unknown) (unknown) (no date) (unknown) (unknown) Reason For Visit (un its unknown) (unknown) (unknown) (no date) (unknown) (unknown) Rectal-tone is normal, and the vault is empty. Prostate measures 60+ g with at (units unknown) (unknown) (unknown) (no date) (unknown) (unknown) Residual: post void (units unknown) (unknown) (unknown) (no date) (unknown) (unknown) Respiration 16 (unit s unknown) (unknown) (unknown) (no date) (unknown) (unknown) Results (units unknown) (unknown) (unknown) (no date) (unknown) (unknown) Retinal detachment ( units unknown) (unknown) (unknown) (no date) (unknown) (unknown) Review of clin ical chart note history, patch data including 6 pages of outside (units unknown) (unknown) (unknown) (no date) (unknown) (unknown) Reviewed findi ngs, discussed impression, and discussed options going forward. (units unknown) (unknown) (unknown) (no date) (unknown) (unknown) Signed By: <Electronically signed by Michell Ramirez MD> (units unknown) (unknown) (unknown) (no date) (unknown) (unknown) Signed (units unknown) (unknown) (unknown) (no date) (unknown) (unknown) Skin cancer (units unknown) (unknown) (unknown) (no date) (unknown) (unknown) Smoking Status : Unknown if ever smoked (units unknown) (unknown) (unknown) (no date) (unknown) (unknown) Social History (units unknown) (unknown) (unknown) (no date) (unknown) (unknown) Status: Acute (units unknown) (unknown) (unknown) (no date) (unknown) (unknown) Gutierrez is a 72-year-old gentleman presenting today for opinion (units unknown) (unknown) (unknown) (no date) (unknown) (unknown) Stroke (units unknown) (unknown) (unknown) (no date) (unknown) (unknown) Surgical Histo ry (units unknown) (unknown) (unknown) (no date) (unknown) (unknown) This note may have been all or partially generated using voice recognition (units unknown) (unknown) (unknown) (no date) (unknown) (unknown) Tobacco Status (unit s unknown) (unknown) (unknown) (no date) (unknown) (unknown) Type(s) of exercise: aerobic (units unknown) (unknown) (unknown) (no date) (unknown) (unknown) Urine Appearan ce Clear Last Edit by Aniya Carpenter RN on 03/22/23 08:14 (units unknown) (unknown) (unknown) (no date) (unknown) (unknown) Urine Bilirubi n Negative Last Edit by Aniya Carpenter RN on 03/22/23 08:14 (units unknown) (unknown) (unknown) (no date) (unknown) (unknown) Urine Blood Negative Last Edit by Aniya Carpenter RN on 03/22/23 08:14 (units unknown) (unknown) (unknown) (no date) (unknown) (unknown) Urine Color Ye llow Last Edit by Aniya Carpenter RN on 03/22/23 08:14 (units unknown) (unknown) (unknown) (no date) (unknown) (unknown) Urine Dipstick (unit s unknown) (unknown) (unknown) (no date) (unknown) (unknown) Urine Glucose Negative mg/dL Last Edit by Aniya Carpenter RN on 03/22/23 08: (units unknown) (unknown) (unknown) (no date) (unknown) (unknown) Urine Ketones +- 5 mg/dL Last Edit by Aniya Carpenter RN on 03/22/23 08:14 (units unknown) (unknown) (unknown) (no date) (unknown) (unknown) Urine Leukocyt e Esterase Negative Last Edit by Aniya Carpenter RN on units unknown) (unknown) (unknown) (no date) (unknown) (unknown) Urine Nitrate Negative Last Edit by Aniya Carpenter RN on 03/22/23 08:14 (units unknown) (unknown) (unknown) (no date) (unknown) (unknown) Urine Protein Negative Last Edit by Aniya Carpenter RN on 03/22/23 08:14 (units unknown) (unknown) (unknown) (no date) (unknown) (unknown) Urine Specific [place] 1.025 Last Edit by Aniya Carpenter RN on 03/22/23 08 (units unknown) (unknown) (unknown) (no date) (unknown) (unknown) Urine Urobilin ogen - 0.2 mg/dL Last Edit by Aniya Carpenter RN on (units unknown) (unknown) (unknown) (no date) (unknown) (unknown) Urine pH 6.0 L ast Edit by Aniya Carpenter RN on 03/22/23 08:14 (units unknown) (unknown) (unknown) (no date) (unknown) (unknown) Urology Office Visit (units unknown) (unknown) (unknown) (no date) (unknown) (unknown) Visit Reasons: HR COORDINATOR-prostate issues (units unknown) (unknown) (unknown) (no date) (unknown) (unknown) Vitals (units unknown) (unknown) (unknown) (no date) (unknown) (unknown) 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 Occasional wrong-word or 'sound-alike' substitutions may have (units unknown) (unknown) (unknown) (no date) (unknown) (unknown) benzonatate 20 0 mg capsule 200 mg PO TID PRN cough #20 caps 12/10/22 [Rx (units unknown) (unknown) (unknown) (no date) (unknown) (unknown) descended bilaterally without palpable mass, tenderness, or fluid collection. (units unknown) (unknown) (unknown) (no date) (unknown) (unknown) discrete induration, or nodularity or asymmetry. (units unknown) (unknown) (unknown) (no date) (unknown) (unknown) erectile dysfunction, unspecified (units unknown) (unknown) (unknown) (no date) (unknown) (unknown) evidence of JV D or adenopathy. (units unknown) (unknown) (unknown) (no date) (unknown) (unknown) fluocinolone acetonide oil 0.01 % ear drops 5 drp otic (ear) DAILY PRN itching (units unknown) (unknown) (unknown) (no date) (unknown) (unknown) for approximat tara 10 years. Most recently he is taking 0.8 mg at HS. Also, (units unknown) (unknown) (unknown) (no date) (unknown) (unknown) frequency: 5-6 times per week (units unknown) (unknown) (unknown) (no date) (unknown) (unknown) has longstandi ng history of erectile dysfunction over proximally 20 years. (units unknown) (unknown) (unknown) (no date) (unknown) (unknown) have occurred. If there are any questions, please contact the Medical Records (units unknown) (unknown) (unknown) (no date) (unknown) (unknown) historical PSA values over many years. He did not provide that data today. (units unknown) (unknown) (unknown) (no date) (unknown) (unknown) history of pro state cancer (father). He states that he has been on tamsulosin (units unknown) (unknown) (unknown) (no date) (unknown) (unknown) history of same. (un its unknown) (unknown) (unknown) (no date) (unknown) (unknown) intermittency, urgency, weak urinary stream, and straining/hesitancy . He also (units unknown) (unknown) (unknown) (no date) (unknown) (unknown) interventional options due to severe compromise of his quality life. Explain (units unknown) (unknown) (unknown) (no date) (unknown) (unknown) ipratropium br omide 42 mcg (0.06 %) nasal spray 2 spray intranasal TID #15 mL (units unknown) (unknown) (unknown) (no date) (unknown) (unknown) least moderate loss of midline sulcus. The gland is firm throughout without (units unknown) (unknown) (unknown) (no date) (unknown) (unknown) lower urinary tract symptoms (units unknown) (unknown) (unknown) (no date) (unknown) (unknown) marital status : (units unknown) (unknown) (unknown) (no date) (unknown) (unknown) number of chil dren: 3 (units unknown) (unknown) (unknown) (no date) (unknown) (unknown) occurred due t o the inherent limitations of voice recognition software. Please (units unknown) (unknown) (unknown) (no date) (unknown) (unknown) of normal erin eloisa. Scrotum is without lesion, rash, or mass. Testes are (units unknown) (unknown) (unknown) (no date) (unknown) (unknown) of prostate ca ncer and patient personal history of melanoma. (units unknown) (unknown) (unknown) (no date) (unknown) (unknown) prostate volum e determination. (units unknown) (unknown) (unknown) (no date) (unknown) (unknown) provider recor ds for current encounter-10 minutes (units unknown) (unknown) (unknown) (no date) (unknown) (unknown) read the note carefully and recognize, using context, where these substitutions (units unknown) (unknown) (unknown) (no date) (unknown) (unknown) recent availab le PSA 11/03/2021, was 2.57. The patient states that he as other (units unknown) (unknown) (unknown) (no date) (unknown) (unknown) regarding longstanding and advancing lower urinary tract symptoms and family (units unknown) (unknown) (unknown) (no date) (unknown) (unknown) software. Alth ough every effort is made to edit content, two needle machine operator errors m (units unknown) (unknown) (unknown) (no date) (unknown) (unknown) tadalafil 5 mg daily. Despite current medication regimen, IPSS is 22/35. (units unknown) (unknown) (unknown) (no date) (unknown) (unknown) tadalafil [Sarah lis] PO 11/15/22 [History Confirmed 03/22/23] (units unknown) (unknown) (unknown) (no date) (unknown) (unknown) tamsulosin 0.4 mg capsule (Flomax) 0.8 mg PO BEDTIME #60 caps 11/15/22 [Rx (units unknown) (unknown) (unknown) (no date) (unknown) (unknown) telmisartan 20 mg tablet 20 mg PO DAILY #90 tabs 02/09/23 [Rx Confirmed (units unknown) (unknown) (unknown) (no date) (unknown) (unknown) than his state d age. (units unknown) (unknown) (unknown) (no date) (unknown) (unknown) the rationale and indications for lower tract evaluation including endoscopy and (units unknown) (unknown) (unknown) (no date) (unknown) (unknown) tract symptoms (unit s unknown) (unknown) (unknown) (no date) (unknown) (unknown) under the supervision of his previous urologist, Dr. Ulysses Escoto, he takes (units unknown) (unknown) Result panel 6 (unknown) (no date) (unknown) (unknown) (no value) (units unknown) (unknown) (unknown) (no date) (unknown) (unknown) #20 mL 2 [Rx Confirmed 04/19/23] (units unknown) (unknown) (unknown) (no date) (unknown) (unknown) 12/10/22 [Rx Confirmed 04/19/23] (units unknown) (unknown) (unknown) (no date) (unknown) (unknown) 04/19/23 (units unknown) (unknown) (unknown) (no date) (unknown) (unknown) 04/19/23] (units unknown) (unknown) (unknown) (no date) (unknown) (unknown) 11/15/22 [Rx Confirmed 04/19/23] (units unknown) (unknown) (unknown) (no date) (unknown) (unknown) 72 y/o M prese nts to clinic for Cystoscopy. PUS. (units unknown) (unknown) (unknown) (no date) (unknown) (unknown) Age/Sex: 72 / M Date of Service: (units unknown) (unknown) (unknown) (no date) (unknown) (unknown) Allergies (units unknown) (unknown) (unknown) (no date) (unknown) (unknown) [place] [address] (units unknown) (unknown) (unknown) (no date) (unknown) (unknown) Anesthesia (units unknown) (unknown) (unknown) (no date) (unknown) (unknown) Assessment + Plan (u nits unknown) (unknown) (unknown) (no date) (unknown) (unknown) Attending Dr: Michell Ramirez MD (units unknown) (unknown) (unknown) (no date) (unknown) (unknown) BPH (benign prostatic hyperplasia) () (units unknown) (unknown) (unknown) (no date) (unknown) (unknown) BPH w urinary obs/LUTS (units unknown) (unknown) (unknown) (no date) (unknown) (unknown) Benign essenti al hypertension (-2020) (units unknown) (unknown) (unknown) (no date) (unknown) (unknown) Benign prostat ic hyperplasia with lower urinary tract symptoms (units unknown) (unknown) (unknown) (no date) (unknown) (unknown) Confirmed 04/19/23] (units unknown) (unknown) (unknown) (no date) (unknown) (unknown) : 1 Acct:[id number] (units unknown) (unknown) (unknown) (no date) (unknown) (unknown) Dept at . (units unknown) (unknown) (unknown) (no date) (unknown) (unknown) Documented By: Michell Ramirez MD 04/19/23 1235 (units unknown) (unknown) (unknown) (no date) (unknown) (unknown) Draft (units unknown) (unknown) (unknown) (no date) (unknown) (unknown) Family History (units unknown) (unknown) (unknown) (no date) (unknown) (unknown) Family history of prostate cancer in father (units unknown) (unknown) (unknown) (no date) (unknown) (unknown) Father d Cancer (units unknown) (unknown) (unknown) (no date) (unknown) (unknown) Grandmother Stroke (units unknown) (unknown) (unknown) (no date) (unknown) (unknown) Hearing loss () (units unknown) (unknown) (unknown) (no date) (unknown) (unknown) History of appendectomy (-1975) (units unknown) (unknown) (unknown) (no date) (unknown) (unknown) History of arthroscopic knee surgery (-1992) (units unknown) (unknown) (unknown) (no date) (unknown) (unknown) History of arthroscopic surgery of shoulder (-1984) (units unknown) (unknown) (unknown) (no date) (unknown) (unknown) History of nephrolithiasis (units unknown) (unknown) (unknown) (no date) (unknown) (unknown) Hyperlipidemia (unit s unknown) (unknown) (unknown) (no date) (unknown) (unknown) IFG (impaired fasting glucose) (units unknown) (unknown) (unknown) (no date) (unknown) (unknown) Intake Note: (units unknown) (unknown) (unknown) (no date) (unknown) (unknown) Intake perform ed by: Aniya Carpenter (units unknown) (unknown) (unknown) (no date) (unknown) (unknown) Intake (units unknown) (unknown) (unknown) (no date) (unknown) (unknown) Intake- Clinci al Staff (units unknown) (unknown) (unknown) (no date) (unknown) (unknown) [facility] (unit s unknown) (unknown) (unknown) (no date) (unknown) (unknown) Loc: [facility] (units unknown) (unknown) (unknown) (no date) (unknown) (unknown) MR#: [id number] (uni ts unknown) (unknown) (unknown) (no date) (unknown) (unknown) Medical Histor y (Updated 03/22/23 @ 12:33 by Michell Ramirez MD) (units unknown) (unknown) (unknown) (no date) (unknown) (unknown) Medications (units unknown) (unknown) (unknown) (no date) (unknown) (unknown) Melanoma (-11/2014) (units unknown) (unknown) (unknown) (no date) (unknown) (unknown) Melanoma (units unknown) (unknown) (unknown) (no date) (unknown) (unknown) Mother d Hypertension (units unknown) (unknown) (unknown) (no date) (unknown) (unknown) Mumps (-1959) (units unknown) (unknown) (unknown) (no date) (unknown) (unknown) No Known Drug Allergies Allergy (Unverified 04/19/23 12:36) (units unknown) (unknown) (unknown) (no date) (unknown) (unknown) Orders (units unknown) (unknown) (unknown) (no date) (unknown) (unknown) Orders: (units unknown) (unknown) (unknown) (no date) (unknown) (unknown) PFSH (units unknown) (unknown) (unknown) (no date) (unknown) (unknown) POC Urine Dip Today N13.8 - Other obstructive and reflux uropathy, N40.1 (units unknown) (unknown) (unknown) (no date) (unknown) (unknown) Patient: Glen Dutta (units unknown) (unknown) (unknown) (no date) (unknown) (unknown) Pulmonary embo li (-2017) (units unknown) (unknown) (unknown) (no date) (unknown) (unknown) Reason For Visit (un its unknown) (unknown) (unknown) (no date) (unknown) (unknown) Retinal detachment ( units unknown) (unknown) (unknown) (no date) (unknown) (unknown) Signed By: (units unknown) (unknown) (unknown) (no date) (unknown) (unknown) Skin cancer (units unknown) (unknown) (unknown) (no date) (unknown) (unknown) Smoking Status : Unknown if ever smoked (units unknown) (unknown) (unknown) (no date) (unknown) (unknown) Social History (units unknown) (unknown) (unknown) (no date) (unknown) (unknown) Stroke (units unknown) (unknown) (unknown) (no date) (unknown) (unknown) Surgical Histo ry (units unknown) (unknown) (unknown) (no date) (unknown) (unknown) This note may have been all or partially generated using voice recognition (units unknown) (unknown) (unknown) (no date) (unknown) (unknown) Tobacco Status (unit s unknown) (unknown) (unknown) (no date) (unknown) (unknown) Type(s) of exercise: aerobic (units unknown) (unknown) (unknown) (no date) (unknown) (unknown) Urology Office Visit (units unknown) (unknown) (unknown) (no date) (unknown) (unknown) Visit Reasons: Cysto/PUS (units unknown) (unknown) (unknown) (no date) (unknown) (unknown) atorvastatin 2 0 mg tablet (Lipitor) 20 mg PO BEDTIME cholesterol #90 tabs (units unknown) (unknown) (unknown) (no date) (unknown) (unknown) benzonatate 20 0 mg capsule 200 mg PO TID PRN cough #20 caps 12/10/22 [Rx (units unknown) (unknown) (unknown) (no date) (unknown) (unknown) fluocinolone acetonide oil 0.01 % ear drops 5 drp otic (ear) DAILY PRN itching (units unknown) (unknown) (unknown) (no date) (unknown) (unknown) frequency: 5-6 times per week (units unknown) (unknown) (unknown) (no date) (unknown) (unknown) have occurred. If there are any questions, please contact the Medical Records (units unknown) (unknown) (unknown) (no date) (unknown) (unknown) ipratropium br omide 42 mcg (0.06 %) nasal spray 2 spray intranasal TID #15 mL (units unknown) (unknown) (unknown) (no date) (unknown) (unknown) marital status : (units unknown) (unknown) (unknown) (no date) (unknown) (unknown) may occur. Occasional wrong-word or 'sound-alike' substitutions may have (units unknown) (unknown) (unknown) (no date) (unknown) (unknown) number of chil dren: 3 (units unknown) (unknown) (unknown) (no date) (unknown) (unknown) occurred due t o the inherent limitations of voice recognition software. Please (units unknown) (unknown) (unknown) (no date) (unknown) (unknown) read the note carefully and recognize, using context, where these substitutions (units unknown) (unknown) (unknown) (no date) (unknown) (unknown) software. Alth ough every effort is made to edit content, two needle machine operator errors (units unknown) (unknown) (unknown) (no date) (unknown) (unknown) tadalafil [Sarah lis] PO 11/15/22 [History Confirmed 04/19/23] (units unknown) (unknown) (unknown) (no date) (unknown) (unknown) tamsulosin 0.4 mg capsule (Flomax) 0.8 mg PO BEDTIME #60 caps 11/15/22 [Rx (units unknown) (unknown) (unknown) (no date) (unknown) (unknown) telmisartan 20 mg tablet 20 mg PO DAILY #90 tabs 02/09/23 [Rx Confirmed (units unknown) (unknown) Result panel 7 (unknown) (no date) (unknown) (unknown) (no value) (units unknown) (unknown) (unknown) (no date) (unknown) (unknown) #20 mL 2 [Rx Confirmed 04/19/23] (units unknown) (unknown) (unknown) (no date) (unknown) (unknown) 12/10/22 [Rx Confirmed 04/19/23] (units unknown) (unknown) (unknown) (no date) (unknown) (unknown) 04/19/23 (units unknown) (unknown) (unknown) (no date) (unknown) (unknown) 04/19/23] (units unknown) (unknown) (unknown) (no date) (unknown) (unknown) 11/15/22 [Rx Confirmed 04/19/23] (units unknown) (unknown) (unknown) (no date) (unknown) (unknown) 12:41 (units unknown) (unknown) (unknown) (no date) (unknown) (unknown) 23 (units unknown) (unknown) (unknown) (no date) (unknown) (unknown) 3 (units unknown) (unknown) (unknown) (no date) (unknown) (unknown) 41 (units unknown) (unknown) (unknown) (no date) (unknown) (unknown) 72 y/o M prese nts to clinic for Cystoscopy. PUS. (units unknown) (unknown) (unknown) (no date) (unknown) (unknown) :41 (units unknown) (unknown) (unknown) (no date) (unknown) (unknown) Age/Sex: 72 / M Date of Service: (units unknown) (unknown) (unknown) (no date) (unknown) (unknown) Allergies (units unknown) (unknown) (unknown) (no date) (unknown) (unknown) [place] [address] (units unknown) (unknown) (unknown) (no date) (unknown) (unknown) Anesthesia (units unknown) (unknown) (unknown) (no date) (unknown) (unknown) Assessment + Plan (u nits unknown) (unknown) (unknown) (no date) (unknown) (unknown) Attending Dr: Michell Ramirez MD (units unknown) (unknown) (unknown) (no date) (unknown) (unknown) BPH (benign prostatic hyperplasia) () (units unknown) (unknown) (unknown) (no date) (unknown) (unknown) BPH w urinary obs/LUTS (units unknown) (unknown) (unknown) (no date) (unknown) (unknown) Benign essenti al hypertension () (units unknown) (unknown) (unknown) (no date) (unknown) (unknown) Benign prostat ic hyperplasia with lower urinary tract symptoms (units unknown) (unknown) (unknown) (no date) (unknown) (unknown) Confirmed 04/19/23] (units unknown) (unknown) (unknown) (no date) (unknown) (unknown) : 1 Acct:[id number] (units unknown) (unknown) (unknown) (no date) (unknown) (unknown) Dept at . (units unknown) (unknown) (unknown) (no date) (unknown) (unknown) Documented By: Michell Ramirez MD 04/19/23 1235 (units unknown) (unknown) (unknown) (no date) (unknown) (unknown) Draft (units unknown) (unknown) (unknown) (no date) (unknown) (unknown) Family History (units unknown) (unknown) (unknown) (no date) (unknown) (unknown) Family history of prostate cancer in father (units unknown) (unknown) (unknown) (no date) (unknown) (unknown) Father d Cancer (units unknown) (unknown) (unknown) (no date) (unknown) (unknown) Grandmother Stroke (units unknown) (unknown) (unknown) (no date) (unknown) (unknown) Hearing loss () (units unknown) (unknown) (unknown) (no date) (unknown) (unknown) History of appendectomy (-1975) (units unknown) (unknown) (unknown) (no date) (unknown) (unknown) History of arthroscopic knee surgery (-1992) (units unknown) (unknown) (unknown) (no date) (unknown) (unknown) History of arthroscopic surgery of shoulder (-1984) (units unknown) (unknown) (unknown) (no date) (unknown) (unknown) History of nephrolithiasis (units unknown) (unknown) (unknown) (no date) (unknown) (unknown) Hyperlipidemia (unit s unknown) (unknown) (unknown) (no date) (unknown) (unknown) IFG (impaired fasting glucose) (units unknown) (unknown) (unknown) (no date) (unknown) (unknown) Intake Note: (units unknown) (unknown) (unknown) (no date) (unknown) (unknown) Intake perform ed by: Aniya Carpenter (units unknown) (unknown) (unknown) (no date) (unknown) (unknown) Intake (units unknown) (unknown) (unknown) (no date) (unknown) (unknown) Intake- [facility] [facility] (units unknown) (unknown) (unknown) (no date) (unknown) (unknown) [facility] (unit s unknown) (unknown) (unknown) (no date) (unknown) (unknown) Loc: [facility] (units unknown) (unknown) (unknown) (no date) (unknown) (unknown) MR#: [id number] (uni ts unknown) (unknown) (unknown) (no date) (unknown) (unknown) Medical Histor y (Updated 03/22/23 @ 12:33 by Michell Ramirez MD) (units unknown) (unknown) (unknown) (no date) (unknown) (unknown) Medications (units unknown) (unknown) (unknown) (no date) (unknown) (unknown) Melanoma (-11/2014) (units unknown) (unknown) (unknown) (no date) (unknown) (unknown) Melanoma (units unknown) (unknown) (unknown) (no date) (unknown) (unknown) Mother d Hypertension (units unknown) (unknown) (unknown) (no date) (unknown) (unknown) Mumps (-1959) (units unknown) (unknown) (unknown) (no date) (unknown) (unknown) No Known Drug Allergies Allergy (Unverified 04/19/23 12:36) (units unknown) (unknown) (unknown) (no date) (unknown) (unknown) Orders (units unknown) (unknown) (unknown) (no date) (unknown) (unknown) Orders: (units unknown) (unknown) (unknown) (no date) (unknown) (unknown) PFSH (units unknown) (unknown) (unknown) (no date) (unknown) (unknown) POC Urine Dip Today N13.8 - Other obstructive and reflux uropathy, N40.1 (units unknown) (unknown) (unknown) (no date) (unknown) (unknown) Patient: Glen Dutta (units unknown) (unknown) (unknown) (no date) (unknown) (unknown) Pulmonary embo li (-2017) (units unknown) (unknown) (unknown) (no date) (unknown) (unknown) Reason For Visit (un its unknown) (unknown) (unknown) (no date) (unknown) (unknown) Results (units unknown) (unknown) (unknown) (no date) (unknown) (unknown) Retinal detachment ( units unknown) (unknown) (unknown) (no date) (unknown) (unknown) Signed By: (units unknown) (unknown) (unknown) (no date) (unknown) (unknown) Skin cancer (units unknown) (unknown) (unknown) (no date) (unknown) (unknown) Smoking Status : Unknown if ever smoked (units unknown) (unknown) (unknown) (no date) (unknown) (unknown) Social History (units unknown) (unknown) (unknown) (no date) (unknown) (unknown) Stroke (units unknown) (unknown) (unknown) (no date) (unknown) (unknown) Surgical Histo ry (units unknown) (unknown) (unknown) (no date) (unknown) (unknown) This note may have been all or partially generated using voice recognition (units unknown) (unknown) (unknown) (no date) (unknown) (unknown) Tobacco Status (unit s unknown) (unknown) (unknown) (no date) (unknown) (unknown) Type(s) of exercise: aerobic (units unknown) (unknown) (unknown) (no date) (unknown) (unknown) Urine Appearan ce Clear Last Edit by Aniya Carpenter RN on 04/19/23 12:41 (units unknown) (unknown) (unknown) (no date) (unknown) (unknown) Urine Bilirubi n Negative Last Edit by Aniya Carpenter RN on 04/19/23 12:41 (units unknown) (unknown) (unknown) (no date) (unknown) (unknown) Urine Blood Negative Last Edit by Aniya Carpenter RN on 04/19/23 12:41 (units unknown) (unknown) (unknown) (no date) (unknown) (unknown) Urine Color Ye llow Last Edit by Aniya Carpenter RN on 04/19/23 12:41 (units unknown) (unknown) (unknown) (no date) (unknown) (unknown) Urine Dipstick (unit s unknown) (unknown) (unknown) (no date) (unknown) (unknown) Urine Glucose Negative mg/dL Last Edit by Aniya Carpenter RN on 04/19/23 12: (units unknown) (unknown) (unknown) (no date) (unknown) (unknown) Urine Ketones Negative Last Edit by Aniya Carpenter RN on 04/19/23 12:41 (units unknown) (unknown) (unknown) (no date) (unknown) (unknown) Urine Leukocyt e Esterase Negative Last Edit by Aniya Carpenter RN on units unknown) (unknown) (unknown) (no date) (unknown) (unknown) Urine Nitrate Negative Last Edit by Aniya Carpenter RN on 04/19/23 12:41 (units unknown) (unknown) (unknown) (no date) (unknown) (unknown) Urine Protein Negative Last Edit by Aniya Carpenter RN on 04/19/23 12:41 (units unknown) (unknown) (unknown) (no date) (unknown) (unknown) Urine Specific [place] 1.015 Last Edit by Aniya Carpenter RN on 04/19/23 12 (units unknown) (unknown) (unknown) (no date) (unknown) (unknown) Urine Urobilin ogen - 0.2 mg/dL Last Edit by Aniya Carpenter RN on (units unknown) (unknown) (unknown) (no date) (unknown) (unknown) Urine pH 6.0 L ast Edit by Aniya Carpenter RN on 04/19/23 12:41 (units unknown) (unknown) (unknown) (no date) (unknown) (unknown) Urology Office Visit (units unknown) (unknown) (unknown) (no date) (unknown) (unknown) Visit Reasons: Cysto/PUS (units unknown) (unknown) (unknown) (no date) (unknown) (unknown) atorvastatin 2 0 mg tablet (Lipitor) 20 mg PO BEDTIME cholesterol #90 tabs (units unknown) (unknown) (unknown) (no date) (unknown) (unknown) benzonatate 20 0 mg capsule 200 mg PO TID PRN cough #20 caps 12/10/22 [Rx (units unknown) (unknown) (unknown) (no date) (unknown) (unknown) fluocinolone acetonide oil 0.01 % ear drops 5 drp otic (ear) DAILY PRN itching (units unknown) (unknown) (unknown) (no date) (unknown) (unknown) frequency: 5-6 times per week (units unknown) (unknown) (unknown) (no date) (unknown) (unknown) have occurred. If there are any questions, please contact the Medical Records (units unknown) (unknown) (unknown) (no date) (unknown) (unknown) ipratropium br omide 42 mcg (0.06 %) nasal spray 2 spray intranasal TID #15 mL (units unknown) (unknown) (unknown) (no date) (unknown) (unknown) marital status : (units unknown) (unknown) (unknown) (no date) (unknown) (unknown) may occur. Occasional wrong-word or 'sound-alike' substitutions may have (units unknown) (unknown) (unknown) (no date) (unknown) (unknown) number of chil dren: 3 (units unknown) (unknown) (unknown) (no date) (unknown) (unknown) occurred due t o the inherent limitations of voice recognition software. Please (units unknown) (unknown) (unknown) (no date) (unknown) (unknown) read the note carefully and recognize, using context, where these substitutions (units unknown) (unknown) (unknown) (no date) (unknown) (unknown) software. Alth ough every effort is made to edit content, two needle machine operator errors (units unknown) (unknown) (unknown) (no date) (unknown) (unknown) tadalafil [Sarah lis] PO 11/15/22 [History Confirmed 04/19/23] (units unknown) (unknown) (unknown) (no date) (unknown) (unknown) tamsulosin 0.4 mg capsule (Flomax) 0.8 mg PO BEDTIME #60 caps 11/15/22 [Rx (units unknown) (unknown) (unknown) (no date) (unknown) (unknown) telmisartan 20 mg tablet 20 mg PO DAILY #90 tabs 02/09/23 [Rx Confirmed (units unknown) (unknown) Result panel 8 (unknown) (no date) (unknown) (unknown) (no value) (units unknown) (unknown) (unknown) (no date) (unknown) (unknown) #20 mL 2 [Rx Confirmed 04/19/23] (units unknown) (unknown) (unknown) (no date) (unknown) (unknown) 12/10/22 [Rx Confirmed 04/19/23] (units unknown) (unknown) (unknown) (no date) (unknown) (unknown) 04/19/23 (units unknown) (unknown) (unknown) (no date) (unknown) (unknown) 04/19/23] (units unknown) (unknown) (unknown) (no date) (unknown) (unknown) 11/15/22 [Rx Confirmed 04/19/23] (units unknown) (unknown) (unknown) (no date) (unknown) (unknown) 12:41 (units unknown) (unknown) (unknown) (no date) (unknown) (unknown) 12:45 (units unknown) (unknown) (unknown) (no date) (unknown) (unknown) 23 (units unknown) (unknown) (unknown) (no date) (unknown) (unknown) 3 (units unknown) (unknown) (unknown) (no date) (unknown) (unknown) 41 (units unknown) (unknown) (unknown) (no date) (unknown) (unknown) 72 y/o M prese nts to clinic for Cystoscopy. PUS. (units unknown) (unknown) (unknown) (no date) (unknown) (unknown) :41 (units unknown) (unknown) (unknown) (no date) (unknown) (unknown) Age/Sex: 72 / M Date of Service: (units unknown) (unknown) (unknown) (no date) (unknown) (unknown) Allergies (units unknown) (unknown) (unknown) (no date) (unknown) (unknown) [facility] [id number] (units unknown) (unknown) (unknown) (no date) (unknown) (unknown) Anesthesia (units unknown) (unknown) (unknown) (no date) (unknown) (unknown) Assessment + Plan (u nits unknown) (unknown) (unknown) (no date) (unknown) (unknown) Attending Dr: Michell Ramirez MD (units unknown) (unknown) (unknown) (no date) (unknown) (unknown) BP 175/74 H (units unknown) (unknown) (unknown) (no date) (unknown) (unknown) BPH (benign prostatic hyperplasia) () (units unknown) (unknown) (unknown) (no date) (unknown) (unknown) BPH w urinary obs/LUTS (units unknown) (unknown) (unknown) (no date) (unknown) (unknown) Benign essenti al hypertension () (units unknown) (unknown) (unknown) (no date) (unknown) (unknown) Benign prostat ic hyperplasia with lower urinary tract symptoms (units unknown) (unknown) (unknown) (no date) (unknown) (unknown) Blood Pressure Location Lt brachial (units unknown) (unknown) (unknown) (no date) (unknown) (unknown) Confirmed 04/19/23] (units unknown) (unknown) (unknown) (no date) (unknown) (unknown) : 1 Acct:[id number] (units unknown) (unknown) (unknown) (no date) (unknown) (unknown) Dept at . (units unknown) (unknown) (unknown) (no date) (unknown) (unknown) Documented By: Michell Ramirez MD 04/19/23 1235 (units unknown) (unknown) (unknown) (no date) (unknown) (unknown) Draft (units unknown) (unknown) (unknown) (no date) (unknown) (unknown) Family History (units unknown) (unknown) (unknown) (no date) (unknown) (unknown) Family history of prostate cancer in father (units unknown) (unknown) (unknown) (no date) (unknown) (unknown) Father d Cancer (units unknown) (unknown) (unknown) (no date) (unknown) (unknown) Grandmother Stroke (units unknown) (unknown) (unknown) (no date) (unknown) (unknown) Hearing loss () (units unknown) (unknown) (unknown) (no date) (unknown) (unknown) History of appendectomy (-1975) (units unknown) (unknown) (unknown) (no date) (unknown) (unknown) History of arthroscopic knee surgery () (units unknown) (unknown) (unknown) (no date) (unknown) (unknown) History of arthroscopic surgery of shoulder () (units unknown) (unknown) (unknown) (no date) (unknown) (unknown) History of nephrolithiasis (units unknown) (unknown) (unknown) (no date) (unknown) (unknown) Hyperlipidemia (unit s unknown) (unknown) (unknown) (no date) (unknown) (unknown) IFG (impaired fasting glucose) (units unknown) (unknown) (unknown) (no date) (unknown) (unknown) Intake Note: (units unknown) (unknown) (unknown) (no date) (unknown) (unknown) Intake perform ed by: Aniya Carpenter (units unknown) (unknown) (unknown) (no date) (unknown) (unknown) Intake (units unknown) (unknown) (unknown) (no date) (unknown) (unknown) Intake- [place] [facility] (units unknown) (unknown) (unknown) (no date) (unknown) (unknown) [facility] (unit s unknown) (unknown) (unknown) (no date) (unknown) (unknown) Loc: [facility] (units unknown) (unknown) (unknown) (no date) (unknown) (unknown) MR#: [id number] (uni ts unknown) (unknown) (unknown) (no date) (unknown) (unknown) Medical Histor y (Updated 03/22/23 @ 12:33 by Michell Ramirez MD) (units unknown) (unknown) (unknown) (no date) (unknown) (unknown) Medications (units unknown) (unknown) (unknown) (no date) (unknown) (unknown) Melanoma (-11/2014) (units unknown) (unknown) (unknown) (no date) (unknown) (unknown) Melanoma (units unknown) (unknown) (unknown) (no date) (unknown) (unknown) Mother d Hypertension (units unknown) (unknown) (unknown) (no date) (unknown) (unknown) Mumps (-1959) (units unknown) (unknown) (unknown) (no date) (unknown) (unknown) No Known Drug Allergies Allergy (Unverified 04/19/23 12:36) (units unknown) (unknown) (unknown) (no date) (unknown) (unknown) Orders (units unknown) (unknown) (unknown) (no date) (unknown) (unknown) Orders: (units unknown) (unknown) (unknown) (no date) (unknown) (unknown) Oxygen Deliver y Method room air (units unknown) (unknown) (unknown) (no date) (unknown) (unknown) PFSH (units unknown) (unknown) (unknown) (no date) (unknown) (unknown) POC Urine Dip Today N13.8 - Other obstructive and reflux uropathy, N40.1 (units unknown) (unknown) (unknown) (no date) (unknown) (unknown) Patient: Taylorkind,Glenget Shirley (units unknown) (unknown) (unknown) (no date) (unknown) (unknown) Position Sitting (un its unknown) (unknown) (unknown) (no date) (unknown) (unknown) Pulmonary embo li (-2016) (units unknown) (unknown) (unknown) (no date) (unknown) (unknown) Pulse 70 (units unknown) (unknown) (unknown) (no date) (unknown) (unknown) Pulse Oximetry (%) 94 (units unknown) (unknown) (unknown) (no date) (unknown) (unknown) Pulse Source Monitor (units unknown) (unknown) (unknown) (no date) (unknown) (unknown) Reason For Visit (un its unknown) (unknown) (unknown) (no date) (unknown) (unknown) Respiration 16 (unit s unknown) (unknown) (unknown) (no date) (unknown) (unknown) Results (units unknown) (unknown) (unknown) (no date) (unknown) (unknown) Retinal detachment ( units unknown) (unknown) (unknown) (no date) (unknown) (unknown) Signed By: (units unknown) (unknown) (unknown) (no date) (unknown) (unknown) Skin cancer (units unknown) (unknown) (unknown) (no date) (unknown) (unknown) Smoking Status : Unknown if ever smoked (units unknown) (unknown) (unknown) (no date) (unknown) (unknown) Social History (units unknown) (unknown) (unknown) (no date) (unknown) (unknown) Stroke (units unknown) (unknown) (unknown) (no date) (unknown) (unknown) Surgical Histo ry (units unknown) (unknown) (unknown) (no date) (unknown) (unknown) This note may have been all or partially generated using voice recognition (units unknown) (unknown) (unknown) (no date) (unknown) (unknown) Tobacco Status (unit s unknown) (unknown) (unknown) (no date) (unknown) (unknown) Type(s) of exercise: aerobic (units unknown) (unknown) (unknown) (no date) (unknown) (unknown) Urine Appearan ce Clear Last Edit by Aniya Carpenter RN on 04/19/23 12:41 (units unknown) (unknown) (unknown) (no date) (unknown) (unknown) Urine Bilirubi n Negative Last Edit by Aniya Carpenter RN on 04/19/23 12:41 (units unknown) (unknown) (unknown) (no date) (unknown) (unknown) Urine Blood Negative Last Edit by Aniya Carpenter RN on 04/19/23 12:41 (units unknown) (unknown) (unknown) (no date) (unknown) (unknown) Urine Color Ye llow Last Edit by Aniya Carpenter RN on 04/19/23 12:41 (units unknown) (unknown) (unknown) (no date) (unknown) (unknown) Urine Dipstick (unit s unknown) (unknown) (unknown) (no date) (unknown) (unknown) Urine Glucose Negative mg/dL Last Edit by Aniya Carpenter RN on 04/19/23 12: (units unknown) (unknown) (unknown) (no date) (unknown) (unknown) Urine Ketones Negative Last Edit by Aniya Carpenter RN on 04/19/23 12:41 (units unknown) (unknown) (unknown) (no date) (unknown) (unknown) Urine Leukocyt e Esterase Negative Last Edit by Aniya Carpenter RN on units unknown) (unknown) (unknown) (no date) (unknown) (unknown) Urine Nitrate Negative Last Edit by Aniya Carpenter RN on 04/19/23 12:41 (units unknown) (unknown) (unknown) (no date) (unknown) (unknown) Urine Protein Negative Last Edit by Aniya Carpenter RN on 04/19/23 12:41 (units unknown) (unknown) (unknown) (no date) (unknown) (unknown) Urine Specific [place] 1.015 Last Edit by Aniya Carpenter RN on 04/19/23 12 (units unknown) (unknown) (unknown) (no date) (unknown) (unknown) Urine Urobilin ogen - 0.2 mg/dL Last Edit by Aniya Carpenter RN on (units unknown) (unknown) (unknown) (no date) (unknown) (unknown) Urine pH 6.0 L ast Edit by Aniya Carpenter RN on 04/19/23 12:41 (units unknown) (unknown) (unknown) (no date) (unknown) (unknown) Urology Office Visit (units unknown) (unknown) (unknown) (no date) (unknown) (unknown) Visit Reasons: Cysto/PUS (units unknown) (unknown) (unknown) (no date) (unknown) (unknown) Vitals (units unknown) (unknown) (unknown) (no date) (unknown) (unknown) atorvastatin 2 0 mg tablet (Lipitor) 20 mg PO BEDTIME cholesterol #90 tabs (units unknown) (unknown) (unknown) (no date) (unknown) (unknown) benzonatate 20 0 mg capsule 200 mg PO TID PRN cough #20 caps 12/10/22 [Rx (units unknown) (unknown) (unknown) (no date) (unknown) (unknown) fluocinolone acetonide oil 0.01 % ear drops 5 drp otic (ear) DAILY PRN itching (units unknown) (unknown) (unknown) (no date) (unknown) (unknown) frequency: 5-6 times per week (units unknown) (unknown) (unknown) (no date) (unknown) (unknown) have occurred. If there are any questions, please contact the Medical Records (units unknown) (unknown) (unknown) (no date) (unknown) (unknown) ipratropium br omide 42 mcg (0.06 %) nasal spray 2 spray intranasal TID #15 mL (units unknown) (unknown) (unknown) (no date) (unknown) (unknown) marital status : (units unknown) (unknown) (unknown) (no date) (unknown) (unknown) may occur. Occasional wrong-word or 'sound-alike' substitutions may have (units unknown) (unknown) (unknown) (no date) (unknown) (unknown) number of chil dren: 3 (units unknown) (unknown) (unknown) (no date) (unknown) (unknown) occurred due t o the inherent limitations of voice recognition software. Please (units unknown) (unknown) (unknown) (no date) (unknown) (unknown) read the note carefully and recognize, using context, where these substitutions (units unknown) (unknown) (unknown) (no date) (unknown) (unknown) software. Alth ough every effort is made to edit content, two needle machine operator errors (units unknown) (unknown) (unknown) (no date) (unknown) (unknown) tadalafil [Sarah lis] PO 11/15/22 [History Confirmed 04/19/23] (units unknown) (unknown) (unknown) (no date) (unknown) (unknown) tamsulosin 0.4 mg capsule (Flomax) 0.8 mg PO BEDTIME #60 caps 11/15/22 [Rx (units unknown) (unknown) (unknown) (no date) (unknown) (unknown) telmisartan 20 mg tablet 20 mg PO DAILY #90 tabs 02/09/23 [Rx Confirmed (units unknown) (unknown) Result panel 9 (unknown) (no date) (unknown) (unknown) (no value) (units unknown) (unknown) (unknown) (no date) (unknown) (unknown) #20 mL 2 [Rx Confirmed 04/19/23] (units unknown) (unknown) (unknown) (no date) (unknown) (unknown) 01/13/23 [Rx Confirmed 04/19/23] (units unknown) (unknown) (unknown) (no date) (unknown) (unknown) 04/19/23 (units unknown) (unknown) (unknown) (no date) (unknown) (unknown) 04/19/23] (units unknown) (unknown) (unknown) (no date) (unknown) (unknown) 11/15/22 [Rx Confirmed 04/19/23] (units unknown) (unknown) (unknown) (no date) (unknown) (unknown) 12:41 (units unknown) (unknown) (unknown) (no date) (unknown) (unknown) 12:45 (units unknown) (unknown) (unknown) (no date) (unknown) (unknown) 23 (units unknown) (unknown) (unknown) (no date) (unknown) (unknown) 3 (units unknown) (unknown) (unknown) (no date) (unknown) (unknown) 41 (units unknown) (unknown) (unknown) (no date) (unknown) (unknown) 72 y/o M prese nts to clinic for Cystoscopy. PUS. (units unknown) (unknown) (unknown) (no date) (unknown) (unknown) :41 (units unknown) (unknown) (unknown) (no date) (unknown) (unknown) Age/Sex: 72 / M Date of Service: (units unknown) (unknown) (unknown) (no date) (unknown) (unknown) All systems reviewed + are unremarkable except as noted in HPI and below (units unknown) (unknown) (unknown) (no date) (unknown) (unknown) Allergies (units unknown) (unknown) (unknown) (no date) (unknown) (unknown) [place] [address] (units unknown) (unknown) (unknown) (no date) (unknown) (unknown) Anesthesia (units unknown) (unknown) (unknown) (no date) (unknown) (unknown) Assessment + Plan (u nits unknown) (unknown) (unknown) (no date) (unknown) (unknown) Attending Dr: Michell Ramirez MD (units unknown) (unknown) (unknown) (no date) (unknown) (unknown) BP 175/74 H (units unknown) (unknown) (unknown) (no date) (unknown) (unknown) BPH (benign prostatic hyperplasia) () (units unknown) (unknown) (unknown) (no date) (unknown) (unknown) BPH w urinary obs/LUTS (units unknown) (unknown) (unknown) (no date) (unknown) (unknown) BPH/LUTS and f amily history of prostate cancer (father). He reports that his (units unknown) (unknown) (unknown) (no date) (unknown) (unknown) Benign essenti al hypertension () (units unknown) (unknown) (unknown) (no date) (unknown) (unknown) Benign prostat ic hyperplasia with lower urinary tract symptoms (units unknown) (unknown) (unknown) (no date) (unknown) (unknown) Bladder-1 to 2 + trabeculation. Normal ureteral orifices bilaterally. There is (units unknown) (unknown) (unknown) (no date) (unknown) (unknown) Blood Pressure Location Lt brachial (units unknown) (unknown) (unknown) (no date) (unknown) (unknown) Chief Complaint (uni ts unknown) (unknown) (unknown) (no date) (unknown) (unknown) Chief Complain t: BPH (units unknown) (unknown) (unknown) (no date) (unknown) (unknown) Confirmed 04/19/23] (units unknown) (unknown) (unknown) (no date) (unknown) (unknown) Consent signed: Yes (units unknown) (unknown) (unknown) (no date) (unknown) (unknown) Const (units unknown) (unknown) (unknown) (no date) (unknown) (unknown) : 1 Acct:[id number] (units unknown) (unknown) (unknown) (no date) (unknown) (unknown) Dept at . (units unknown) (unknown) (unknown) (no date) (unknown) (unknown) Details: (units unknown) (unknown) (unknown) (no date) (unknown) (unknown) Documented By: Michell Ramirez MD 04/19/23 5228 (units unknown) (unknown) (unknown) (no date) (unknown) (unknown) Draft (units unknown) (unknown) (unknown) (no date) (unknown) (unknown) Exam Narrative (unit s unknown) (unknown) (unknown) (no date) (unknown) (unknown) Exam Narrative: (uni ts unknown) (unknown) (unknown) (no date) (unknown) (unknown) Exam (units unknown) (unknown) (unknown) (no date) (unknown) (unknown) External sphincter-coapted with normal overlying urothelium. (units unknown) (unknown) (unknown) (no date) (unknown) (unknown) FINDINGS: (units unknown) (unknown) (unknown) (no date) (unknown) (unknown) Family History (units unknown) (unknown) (unknown) (no date) (unknown) (unknown) Family history of prostate cancer in father (units unknown) (unknown) (unknown) (no date) (unknown) (unknown) Father d Cancer (units unknown) (unknown) (unknown) (no date) (unknown) (unknown) Grandmother Stroke (units unknown) (unknown) (unknown) (no date) (unknown) (unknown) HPI (units unknown) (unknown) (unknown) (no date) (unknown) (unknown) Hearing loss () (units unknown) (unknown) (unknown) (no date) (unknown) (unknown) History of appendectomy (-1975) (units unknown) (unknown) (unknown) (no date) (unknown) (unknown) History of arthroscopic knee surgery (-1992) (units unknown) (unknown) (unknown) (no date) (unknown) (unknown) History of arthroscopic surgery of shoulder () (units unknown) (unknown) (unknown) (no date) (unknown) (unknown) History of nephrolithiasis (units unknown) (unknown) (unknown) (no date) (unknown) (unknown) Hyperlipidemia (unit s unknown) (unknown) (unknown) (no date) (unknown) (unknown) IFG (impaired fasting glucose) (units unknown) (unknown) (unknown) (no date) (unknown) (unknown) Informed conse nt given: Yes (units unknown) (unknown) (unknown) (no date) (unknown) (unknown) Intake Note: (units unknown) (unknown) (unknown) (no date) (unknown) (unknown) Intake perform ed by: Yamazaki,Aniya (units unknown) (unknown) (unknown) (no date) (unknown) (unknown) Intake (units unknown) (unknown) (unknown) (no date) (unknown) (unknown) Intake- [facility] (units unknown) (unknown) (unknown) (no date) (unknown) (unknown) [facility] (unit s unknown) (unknown) (unknown) (no date) (unknown) (unknown) Loc: [facility] (units unknown) (unknown) (unknown) (no date) (unknown) (unknown) MR#: [id number] (uni ts unknown) (unknown) (unknown) (no date) (unknown) (unknown) Medical Histor y (units unknown) (unknown) (unknown) (no date) (unknown) (unknown) Medications (units unknown) (unknown) (unknown) (no date) (unknown) (unknown) Medications: (units unknown) (unknown) (unknown) (no date) (unknown) (unknown) Melanoma (-11/2014) (units unknown) (unknown) (unknown) (no date) (unknown) (unknown) Melanoma (units unknown) (unknown) (unknown) (no date) (unknown) (unknown) Mother d Hypertension (units unknown) (unknown) (unknown) (no date) (unknown) (unknown) Mumps (-1959) (units unknown) (unknown) (unknown) (no date) (unknown) (unknown) New (units unknown) (unknown) (unknown) (no date) (unknown) (unknown) No Known Drug Allergies Allergy (Unverified 04/19/23 12:36) (units unknown) (unknown) (unknown) (no date) (unknown) (unknown) OFFICE CYSTOSC OPY male: (units unknown) (unknown) (unknown) (no date) (unknown) (unknown) Office Procedures (u nits unknown) (unknown) (unknown) (no date) (unknown) (unknown) Orders (units unknown) (unknown) (unknown) (no date) (unknown) (unknown) Orders: (units unknown) (unknown) (unknown) (no date) (unknown) (unknown) Oxygen Deliver y Method room air (units unknown) (unknown) (unknown) (no date) (unknown) (unknown) PFSH (units unknown) (unknown) (unknown) (no date) (unknown) (unknown) POC Urine Dip Today N13.8 - Other obstructive and reflux uropathy, N40.1 (units unknown) (unknown) (unknown) (no date) (unknown) (unknown) PSA 03/22/2023 , was 2.22. This value is very similar to recent historical (units unknown) (unknown) (unknown) (no date) (unknown) (unknown) Patient: Glen Dutta (units unknown) (unknown) (unknown) (no date) (unknown) (unknown) Position Sitting (un its unknown) (unknown) (unknown) (no date) (unknown) (unknown) Procedure Notes: (un its unknown) (unknown) (unknown) (no date) (unknown) (unknown) Prostate-5+ cm length with mucosal hypervascularity, benign mucosal varices, and (units unknown) (unknown) (unknown) (no date) (unknown) (unknown) Pulmonary embo li (-2016) (units unknown) (unknown) (unknown) (no date) (unknown) (unknown) Pulse 70 (units unknown) (unknown) (unknown) (no date) (unknown) (unknown) Pulse Oximetry (%) 94 (units unknown) (unknown) (unknown) (no date) (unknown) (unknown) Pulse Source Monitor (units unknown) (unknown) (unknown) (no date) (unknown) (unknown) ROS (units unknown) (unknown) (unknown) (no date) (unknown) (unknown) Reason For Visit (un its unknown) (unknown) (unknown) (no date) (unknown) (unknown) Respiration 16 (unit s unknown) (unknown) (unknown) (no date) (unknown) (unknown) Results (units unknown) (unknown) (unknown) (no date) (unknown) (unknown) Retinal detachment ( units unknown) (unknown) (unknown) (no date) (unknown) (unknown) Signed By: (units unknown) (unknown) (unknown) (no date) (unknown) (unknown) Skin cancer (units unknown) (unknown) (unknown) (no date) (unknown) (unknown) Smoking Status : Unknown if ever smoked (units unknown) (unknown) (unknown) (no date) (unknown) (unknown) Social History (units unknown) (unknown) (unknown) (no date) (unknown) (unknown) Gutierrez returns today for scheduled office cystoscopy/PUS. He has history of (units unknown) (unknown) (unknown) (no date) (unknown) (unknown) Stroke (units unknown) (unknown) (unknown) (no date) (unknown) (unknown) Surgical Histo ry (units unknown) (unknown) (unknown) (no date) (unknown) (unknown) The patient wa s positioned supine and the lower abdomen, genitalia, and groin (units unknown) (unknown) (unknown) (no date) (unknown) (unknown) This note may have been all or partially generated using voice recognition (units unknown) (unknown) (unknown) (no date) (unknown) (unknown) Tobacco Status (unit s unknown) (unknown) (unknown) (no date) (unknown) (unknown) Type(s) of exercise: aerobic (units unknown) (unknown) (unknown) (no date) (unknown) (unknown) Unchanged norm al circumcised adult external genitalia. (units unknown) (unknown) (unknown) (no date) (unknown) (unknown) Urethra-normal caliber without annular stricture or lesion. (units unknown) (unknown) (unknown) (no date) (unknown) (unknown) Urine Appearan ce Clear Last Edit by Aniya Carpenter RN on 04/19/23 12:41 (units unknown) (unknown) (unknown) (no date) (unknown) (unknown) Urine Bilirubi n Negative Last Edit by Aniya Carpenter RN on 04/19/23 12:41 (units unknown) (unknown) (unknown) (no date) (unknown) (unknown) Urine Blood Negative Last Edit by Aniya Carpenter RN on 04/19/23 12:41 (units unknown) (unknown) (unknown) (no date) (unknown) (unknown) Urine Color Ye llow Last Edit by Aniya Carpenter RN on 04/19/23 12:41 (units unknown) (unknown) (unknown) (no date) (unknown) (unknown) Urine Dipstick (unit s unknown) (unknown) (unknown) (no date) (unknown) (unknown) Urine Glucose Negative mg/dL Last Edit by Aniya Carpenter RN on 04/19/23 12: (units unknown) (unknown) (unknown) (no date) (unknown) (unknown) Urine Ketones Negative Last Edit by Aniya Carpenter RN on 04/19/23 12:41 (units unknown) (unknown) (unknown) (no date) (unknown) (unknown) Urine Leukocyt e Esterase Negative Last Edit by Aniya Carpenter RN on units unknown) (unknown) (unknown) (no date) (unknown) (unknown) Urine Nitrate Negative Last Edit by Aniya Carpenter RN on 04/19/23 12:41 (units unknown) (unknown) (unknown) (no date) (unknown) (unknown) Urine Protein Negative Last Edit by Aniya Carpenter RN on 04/19/23 12:41 (units unknown) (unknown) (unknown) (no date) (unknown) (unknown) Urine Specific [place] 1.015 Last Edit by Aniya Carpenter RN on 04/19/23 12 (units unknown) (unknown) (unknown) (no date) (unknown) (unknown) Urine Urobilin ogen - 0.2 mg/dL Last Edit by Aniya Carpenter RN on (units unknown) (unknown) (unknown) (no date) (unknown) (unknown) Urine pH 6.0 L ast Edit by Aniya Carpenter RN on 04/19/23 12:41 (units unknown) (unknown) (unknown) (no date) (unknown) (unknown) Urology Office Visit (units unknown) (unknown) (unknown) (no date) (unknown) (unknown) Visit Reasons: Cysto/PUS (units unknown) (unknown) (unknown) (no date) (unknown) (unknown) Vitals (units unknown) (unknown) (unknown) (no date) (unknown) (unknown) assistance low er tract flexible endoscopy was performed with the findings as (units unknown) (unknown) (unknown) (no date) (unknown) (unknown) atorvastatin 2 0 mg tablet (Lipitor) 20 mg PO BEDTIME cholesterol #90 tabs (units unknown) (unknown) (unknown) (no date) (unknown) (unknown) benzonatate 20 0 mg capsule 200 mg PO TID PRN cough #20 caps 12/10/22 [Rx (units unknown) (unknown) (unknown) (no date) (unknown) (unknown) described below. (un its unknown) (unknown) (unknown) (no date) (unknown) (unknown) diverticulum, stone, or neoplasm. (units unknown) (unknown) (unknown) (no date) (unknown) (unknown) finasteride 5 mg PO DAILY 90 tabs 3RF (units unknown) (unknown) (unknown) (no date) (unknown) (unknown) finasteride 5 mg tablet 5 mg PO DAILY #90 tabs 04/19/23 [Rx Confirmed 04/19/23] (units unknown) (unknown) (unknown) (no date) (unknown) (unknown) fluocinolone acetonide oil 0.01 % ear drops 5 drp otic (ear) DAILY PRN itching (units unknown) (unknown) (unknown) (no date) (unknown) (unknown) for tadalafil today. Urinalysis today is clear. (units unknown) (unknown) (unknown) (no date) (unknown) (unknown) frequency: 5-6 times per week (units unknown) (unknown) (unknown) (no date) (unknown) (unknown) have occurred. If there are any questions, please contact the Medical Records (units unknown) (unknown) (unknown) (no date) (unknown) (unknown) impressive circumferential impingement of the bladder neck due to prostate as (units unknown) (unknown) (unknown) (no date) (unknown) (unknown) ipratropium br omide 42 mcg (0.06 %) nasal spray 2 spray intranasal TID #15 mL (units unknown) (unknown) (unknown) (no date) (unknown) (unknown) marital status : (units unknown) (unknown) (unknown) (no date) (unknown) (unknown) may occur. Occasional wrong-word or 'sound-alike' substitutions may have (units unknown) (unknown) (unknown) (no date) (unknown) (unknown) number of chil dren: 3 (units unknown) (unknown) (unknown) (no date) (unknown) (unknown) occurred due t o the inherent limitations of voice recognition software. Please (units unknown) (unknown) (unknown) (no date) (unknown) (unknown) read the note carefully and recognize, using context, where these substitutions (units unknown) (unknown) (unknown) (no date) (unknown) (unknown) scattered muco jono calcifications. Obstructing trilobar hyperplasia. (units unknown) (unknown) (unknown) (no date) (unknown) (unknown) software. Alth ough every effort is made to edit content, two needle machine operator errors (units unknown) (unknown) (unknown) (no date) (unknown) (unknown) tadalafil (Sarah lis) 5 mg PO DAILY 90 tabs 3RF (units unknown) (unknown) (unknown) (no date) (unknown) (unknown) tadalafil 5 mg tablet (Cialis) 5 mg PO DAILY #90 tabs 04/19/23 [Rx Confirmed (units unknown) (unknown) (unknown) (no date) (unknown) (unknown) tadalafil [Sarah lis] PO 11/15/22 [History Confirmed 04/19/23] (units unknown) (unknown) (unknown) (no date) (unknown) (unknown) tamsulosin 0.4 mg capsule (Flomax) 0.8 mg PO BEDTIME #60 caps 11/15/22 [Rx (units unknown) (unknown) (unknown) (no date) (unknown) (unknown) tamsulosin, ve rses tamsulosin monotherapy alone. He request prescription refill (units unknown) (unknown) (unknown) (no date) (unknown) (unknown) telmisartan 20 mg tablet 20 mg PO DAILY #90 tabs 02/09/23 [Rx Confirmed (units unknown) (unknown) (unknown) (no date) (unknown) (unknown) values. (units unknown) (unknown) (unknown) (no date) (unknown) (unknown) voiding patter n character are definitely better on combination of tadalafil plus (units unknown) (unknown) (unknown) (no date) (unknown) (unknown) well as a lip of intravesical median lobe occluding the outlet. No evidence of (units unknown) (unknown) (unknown) (no date) (unknown) (unknown) were prepped a nd draped in sterile fashion. ?Using sterile technique and video (units unknown) (unknown) Result panel 10 (unknown) (no date) (unknown) (unknown) (no value) (units unknown) (unknown) (unknown) (no date) (unknown) (unknown) #20 mL 2 [Rx Confirmed 04/19/23] (units unknown) (unknown) (unknown) (no date) (unknown) (unknown) (1) BPH w urin alexa obs/LUTS: (units unknown) (unknown) (unknown) (no date) (unknown) (unknown) (2) Family his tory of prostate cancer in father: (units unknown) (unknown) (unknown) (no date) (unknown) (unknown) (3) History of nephrolithiasis: (units unknown) (unknown) (unknown) (no date) (unknown) (unknown) 12/10/22 [Rx Confirmed 04/19/23] (units unknown) (unknown) (unknown) (no date) (unknown) (unknown) 04/19/23 1716 (units unknown) (unknown) (unknown) (no date) (unknown) (unknown) 04/19/23 (units unknown) (unknown) (unknown) (no date) (unknown) (unknown) 04/19/23] (units unknown) (unknown) (unknown) (no date) (unknown) (unknown) 1. Return to [facility] urology in 3 months for clinical update, PSA, and PVR. (units unknown) (unknown) (unknown) (no date) (unknown) (unknown) 11/15/22 [Rx Confirmed 04/19/23] (units unknown) (unknown) (unknown) (no date) (unknown) (unknown) 12:41 (units unknown) (unknown) (unknown) (no date) (unknown) (unknown) 12:45 (units unknown) (unknown) (unknown) (no date) (unknown) (unknown) 2. Rx finaster edward 5 mg p.o. q.day. Common side effects, precautions, and intake (units unknown) (unknown) (unknown) (no date) (unknown) (unknown) 23 (units unknown) (unknown) (unknown) (no date) (unknown) (unknown) 3 (units unknown) (unknown) (unknown) (no date) (unknown) (unknown) 3. Rx tadalafi l 5 mg p.o. q.day. Common side effects, precautions, and intake (units unknown) (unknown) (unknown) (no date) (unknown) (unknown) 4. Continue tamsulosin 0.4 mg at HS. (units unknown) (unknown) (unknown) (no date) (unknown) (unknown) 41 (units unknown) (unknown) (unknown) (no date) (unknown) (unknown) 5. Discuss fur ther and possibly schedule simple open prostatectomy-futur e. (units unknown) (unknown) (unknown) (no date) (unknown) (unknown) 72 y/o M prese nts to clinic for Cystoscopy. PUS. (units unknown) (unknown) (unknown) (no date) (unknown) (unknown) :41 (units unknown) (unknown) (unknown) (no date) (unknown) (unknown) Age/Sex: 72 / M Date of Service: (units unknown) (unknown) (unknown) (no date) (unknown) (unknown) All systems reviewed + are unremarkable except as noted in HPI and below (units unknown) (unknown) (unknown) (no date) (unknown) (unknown) Allergies (units unknown) (unknown) (unknown) (no date) (unknown) (unknown) [place] [address] (units unknown) (unknown) (unknown) (no date) (unknown) (unknown) Anesthesia (units unknown) (unknown) (unknown) (no date) (unknown) (unknown) Assessment + Plan (u nits unknown) (unknown) (unknown) (no date) (unknown) (unknown) Attending Dr: Michell Ramirez MD (units unknown) (unknown) (unknown) (no date) (unknown) (unknown) BP 175/74 H (units unknown) (unknown) (unknown) (no date) (unknown) (unknown) BPH (benign prostatic hyperplasia) (-2020) (units unknown) (unknown) (unknown) (no date) (unknown) (unknown) BPH w urinary obs/LUTS (units unknown) (unknown) (unknown) (no date) (unknown) (unknown) BPH/LUTS and f amily history of prostate cancer (father). He reports that his (units unknown) (unknown) (unknown) (no date) (unknown) (unknown) Benign essenti al hypertension (-2020) (units unknown) (unknown) (unknown) (no date) (unknown) (unknown) Benign prostat ic hyperplasia with lower urinary tract symptoms (units unknown) (unknown) (unknown) (no date) (unknown) (unknown) Bladder-1 to 2 + trabeculation. Normal ureteral orifices bilaterally. There is (units unknown) (unknown) (unknown) (no date) (unknown) (unknown) Blood Pressure Location Lt brachial (units unknown) (unknown) (unknown) (no date) (unknown) (unknown) Chief Complaint (uni ts unknown) (unknown) (unknown) (no date) (unknown) (unknown) Chief Complain t: BPH (units unknown) (unknown) (unknown) (no date) (unknown) (unknown) Code(s): (units unknown) (unknown) (unknown) (no date) (unknown) (unknown) Confirmed 04/19/23] (units unknown) (unknown) (unknown) (no date) (unknown) (unknown) Consent signed: Yes (units unknown) (unknown) (unknown) (no date) (unknown) (unknown) Const (units unknown) (unknown) (unknown) (no date) (unknown) (unknown) : 1 Acct:[id number] (units unknown) (unknown) (unknown) (no date) (unknown) (unknown) Dept at . (units unknown) (unknown) (unknown) (no date) (unknown) (unknown) Details: (units unknown) (unknown) (unknown) (no date) (unknown) (unknown) Documented By: Michell Ramirez MD 04/19/23 7532 (units unknown) (unknown) (unknown) (no date) (unknown) (unknown) Encounter documentation, Rx submission, and billing-10 minutes (units unknown) (unknown) (unknown) (no date) (unknown) (unknown) Exam Narrative (unit s unknown) (unknown) (unknown) (no date) (unknown) (unknown) Exam Narrative: (uni ts unknown) (unknown) (unknown) (no date) (unknown) (unknown) Exam (units unknown) (unknown) (unknown) (no date) (unknown) (unknown) Explained that medical therapy is an option and may be maximized with above (units unknown) (unknown) (unknown) (no date) (unknown) (unknown) External sphincter-coapted with normal overlying urothelium. (units unknown) (unknown) (unknown) (no date) (unknown) (unknown) FINDINGS: (units unknown) (unknown) (unknown) (no date) (unknown) (unknown) [id number] encounter exclusive of performance of cystoscopy and prostate (units unknown) (unknown) (unknown) (no date) (unknown) (unknown) Family History (units unknown) (unknown) (unknown) (no date) (unknown) (unknown) Family history of prostate cancer in father (units unknown) (unknown) (unknown) (no date) (unknown) (unknown) Father d Cancer (units unknown) (unknown) (unknown) (no date) (unknown) (unknown) Grandmother Stroke (units unknown) (unknown) (unknown) (no date) (unknown) (unknown) HPI (units unknown) (unknown) (unknown) (no date) (unknown) (unknown) Hearing loss () (units unknown) (unknown) (unknown) (no date) (unknown) (unknown) History of appendectomy (-1975) (units unknown) (unknown) (unknown) (no date) (unknown) (unknown) History of arthroscopic knee surgery () (units unknown) (unknown) (unknown) (no date) (unknown) (unknown) History of arthroscopic surgery of shoulder () (units unknown) (unknown) (unknown) (no date) (unknown) (unknown) History of nephrolithiasis (units unknown) (unknown) (unknown) (no date) (unknown) (unknown) Hyperlipidemia (unit s unknown) (unknown) (unknown) (no date) (unknown) (unknown) IFG (impaired fasting glucose) (units unknown) (unknown) (unknown) (no date) (unknown) (unknown) Informed conse nt given: Yes (units unknown) (unknown) (unknown) (no date) (unknown) (unknown) Intake Note: (units unknown) (unknown) (unknown) (no date) (unknown) (unknown) Intake perform ed by: Aniya Carpenter (units unknown) (unknown) (unknown) (no date) (unknown) (unknown) Intake (units unknown) (unknown) (unknown) (no date) (unknown) (unknown) Intake- [facility] Staff (units unknown) (unknown) (unknown) (no date) (unknown) (unknown) [facility] (unit s unknown) (unknown) (unknown) (no date) (unknown) (unknown) Loc: [facility] (units unknown) (unknown) (unknown) (no date) (unknown) (unknown) MR#: [id number] (uni ts unknown) (unknown) (unknown) (no date) (unknown) (unknown) Medical Histor y (units unknown) (unknown) (unknown) (no date) (unknown) (unknown) Medications (units unknown) (unknown) (unknown) (no date) (unknown) (unknown) Medications: (units unknown) (unknown) (unknown) (no date) (unknown) (unknown) Melanoma (-11/2014) (units unknown) (unknown) (unknown) (no date) (unknown) (unknown) Melanoma (units unknown) (unknown) (unknown) (no date) (unknown) (unknown) Mother d Hypertension (units unknown) (unknown) (unknown) (no date) (unknown) (unknown) Mumps (-1959) (units unknown) (unknown) (unknown) (no date) (unknown) (unknown) N40.1 - Benign prostatic hyperplasia with lower urinary tract symptoms; N13.8 (units unknown) (unknown) (unknown) (no date) (unknown) (unknown) New (units unknown) (unknown) (unknown) (no date) (unknown) (unknown) No Known Drug Allergies Allergy (Unverified 04/19/23 12:36) (units unknown) (unknown) (unknown) (no date) (unknown) (unknown) OFFICE CYSTOSC OPY male: (units unknown) (unknown) (unknown) (no date) (unknown) (unknown) Office Procedures (u nits unknown) (unknown) (unknown) (no date) (unknown) (unknown) Orders (units unknown) (unknown) (unknown) (no date) (unknown) (unknown) Orders: (units unknown) (unknown) (unknown) (no date) (unknown) (unknown) Other obstruct venecia and reflux uropathy (units unknown) (unknown) (unknown) (no date) (unknown) (unknown) Oxygen Deliver y Method room air (units unknown) (unknown) (unknown) (no date) (unknown) (unknown) PFSH (units unknown) (unknown) (unknown) (no date) (unknown) (unknown) POC Urine Dip Today N13.8 - Other obstructive and reflux uropathy, N40.1 (units unknown) (unknown) (unknown) (no date) (unknown) (unknown) PROSTATE ULTRASOUND: (units unknown) (unknown) (unknown) (no date) (unknown) (unknown) PSA 03/22/2023 , was 2.22. This value is very similar to recent historical (units unknown) (unknown) (unknown) (no date) (unknown) (unknown) PSA density= 0.02 (u nits unknown) (unknown) (unknown) (no date) (unknown) (unknown) Patient: Glen Dutta (units unknown) (unknown) (unknown) (no date) (unknown) (unknown) Plan (units unknown) (unknown) (unknown) (no date) (unknown) (unknown) Position Sitting (un its unknown) (unknown) (unknown) (no date) (unknown) (unknown) Predicted PSA= 11.41 (units unknown) (unknown) (unknown) (no date) (unknown) (unknown) Procedure Notes: (un its unknown) (unknown) (unknown) (no date) (unknown) (unknown) Prostate volume-95.06 cc (units unknown) (unknown) (unknown) (no date) (unknown) (unknown) Prostate-5+ cm length with mucosal hypervascularity, benign mucosal varices, and (units unknown) (unknown) (unknown) (no date) (unknown) (unknown) Pulmonary embo li (-2017) (units unknown) (unknown) (unknown) (no date) (unknown) (unknown) Pulse 70 (units unknown) (unknown) (unknown) (no date) (unknown) (unknown) Pulse Oximetry (%) 94 (units unknown) (unknown) (unknown) (no date) (unknown) (unknown) Pulse Source Monitor (units unknown) (unknown) (unknown) (no date) (unknown) (unknown) ROS (units unknown) (unknown) (unknown) (no date) (unknown) (unknown) Reason For Visit (un its unknown) (unknown) (unknown) (no date) (unknown) (unknown) Respiration 16 (unit s unknown) (unknown) (unknown) (no date) (unknown) (unknown) Results (units unknown) (unknown) (unknown) (no date) (unknown) (unknown) Retinal detachment ( units unknown) (unknown) (unknown) (no date) (unknown) (unknown) Review of [facility] chart note history, patient data, PSA library for encounter-5 (units unknown) (unknown) (unknown) (no date) (unknown) (unknown) Reviewed findi ngs, discussed impression, discussed options and follow-up. (units unknown) (unknown) (unknown) (no date) (unknown) (unknown) Signed By: <Electronically signed by Michell Ramirez MD> (units unknown) (unknown) (unknown) (no date) (unknown) (unknown) Signed (units unknown) (unknown) (unknown) (no date) (unknown) (unknown) Skin cancer (units unknown) (unknown) (unknown) (no date) (unknown) (unknown) Smoking Status : Unknown if ever smoked (units unknown) (unknown) (unknown) (no date) (unknown) (unknown) Social History (units unknown) (unknown) (unknown) (no date) (unknown) (unknown) Status: Acute (units unknown) (unknown) (unknown) (no date) (unknown) (unknown) Gutierrez returns today for scheduled office cystoscopy/PUS. He has history of (units unknown) (unknown) (unknown) (no date) (unknown) (unknown) Stroke (units unknown) (unknown) (unknown) (no date) (unknown) (unknown) Surgical Histo ry (units unknown) (unknown) (unknown) (no date) (unknown) (unknown) The patient wa s positioned in left lateral decubitus position and the (units unknown) (unknown) (unknown) (no date) (unknown) (unknown) The patient wa s positioned supine and the lower abdomen, genitalia, and groin (units unknown) (unknown) (unknown) (no date) (unknown) (unknown) This note may have been all or partially generated using voice recognition (units unknown) (unknown) (unknown) (no date) (unknown) (unknown) Tobacco Status (unit s unknown) (unknown) (unknown) (no date) (unknown) (unknown) Type(s) of exercise: aerobic (units unknown) (unknown) (unknown) (no date) (unknown) (unknown) Unchanged norm al circumcised adult external genitalia. (units unknown) (unknown) (unknown) (no date) (unknown) (unknown) Urethra-normal caliber without annular stricture or lesion. (units unknown) (unknown) (unknown) (no date) (unknown) (unknown) Urethral length-5.79 cm (units unknown) (unknown) (unknown) (no date) (unknown) (unknown) Urine Appearan ce Clear Last Edit by Aniya Carpenter RN on 04/19/23 12:41 (units unknown) (unknown) (unknown) (no date) (unknown) (unknown) Urine Bilirubi n Negative Last Edit by Aniya Carpenter RN on 04/19/23 12:41 (units unknown) (unknown) (unknown) (no date) (unknown) (unknown) Urine Blood Negative Last Edit by Aniya Carpenter RN on 04/19/23 12:41 (units unknown) (unknown) (unknown) (no date) (unknown) (unknown) Urine Color Ye llow Last Edit by Aniya Carpenter RN on 04/19/23 12:41 (units unknown) (unknown) (unknown) (no date) (unknown) (unknown) Urine Dipstick (unit s unknown) (unknown) (unknown) (no date) (unknown) (unknown) Urine Glucose Negative mg/dL Last Edit by Aniya Carpenter RN on 04/19/23 12: (units unknown) (unknown) (unknown) (no date) (unknown) (unknown) Urine Ketones Negative Last Edit by Aniya Carpenter RN on 04/19/23 12:41 (units unknown) (unknown) (unknown) (no date) (unknown) (unknown) Urine Leukocyt e Esterase Negative Last Edit by Aniya Carpenter RN on units unknown) (unknown) (unknown) (no date) (unknown) (unknown) Urine Nitrate Negative Last Edit by Aniya Carpenter RN on 04/19/23 12:41 (units unknown) (unknown) (unknown) (no date) (unknown) (unknown) Urine Protein Negative Last Edit by Aniya Carpenter RN on 04/19/23 12:41 (units unknown) (unknown) (unknown) (no date) (unknown) (unknown) Urine Specific [place] 1.015 Last Edit by Aniya Carpenter RN on 04/19/23 12 (units unknown) (unknown) (unknown) (no date) (unknown) (unknown) Urine Urobilin ogen - 0.2 mg/dL Last Edit by Aniya Carpenter RN on (units unknown) (unknown) (unknown) (no date) (unknown) (unknown) Urine pH 6.0 L ast Edit by Aniya Carpenter RN on 04/19/23 12:41 (units unknown) (unknown) (unknown) (no date) (unknown) (unknown) Urology Office Visit (units unknown) (unknown) (unknown) (no date) (unknown) (unknown) Visit Reasons: Cysto/PUS (units unknown) (unknown) (unknown) (no date) (unknown) (unknown) Vitals (units unknown) (unknown) (unknown) (no date) (unknown) (unknown) 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 (un its unknown) (unknown) (unknown) (no date) (unknown) (unknown) assistance low er tract flexible endoscopy was performed with the findings as (units unknown) (unknown) (unknown) (no date) (unknown) (unknown) atorvastatin 2 0 mg tablet (Lipitor) 20 mg PO BEDTIME cholesterol #90 tabs (units unknown) (unknown) (unknown) (no date) (unknown) (unknown) ay occur. Occasional wrong-word or 'sound-alike' substitutions may have (units unknown) (unknown) (unknown) (no date) (unknown) (unknown) benzonatate 20 0 mg capsule 200 mg PO TID PRN cough #20 caps 12/10/22 [Rx (units unknown) (unknown) (unknown) (no date) (unknown) (unknown) complications, perioperative limitations/restric tions, and reasonable (units unknown) (unknown) (unknown) (no date) (unknown) (unknown) described below. (un its unknown) (unknown) (unknown) (no date) (unknown) (unknown) diverticulum, stone, or neoplasm. (units unknown) (unknown) (unknown) (no date) (unknown) (unknown) expectations o f outcomes and recovery following simple open prostatectomy. He (units unknown) (unknown) (unknown) (no date) (unknown) (unknown) finasteride 5 mg PO DAILY 90 tabs 3RF (units unknown) (unknown) (unknown) (no date) (unknown) (unknown) finasteride 5 mg tablet 5 mg PO DAILY #90 tabs 04/19/23 [Rx Confirmed 04/19/23] (units unknown) (unknown) (unknown) (no date) (unknown) (unknown) fluocinolone acetonide oil 0.01 % ear drops 5 drp otic (ear) DAILY PRN itching (units unknown) (unknown) (unknown) (no date) (unknown) (unknown) for tadalafil today. Urinalysis today is clear. (units unknown) (unknown) (unknown) (no date) (unknown) (unknown) frequency: 5-6 times per week (units unknown) (unknown) (unknown) (no date) (unknown) (unknown) have occurred. If there are any questions, please contact the Medical Records (units unknown) (unknown) (unknown) (no date) (unknown) (unknown) his options ar mainly limited to simple open prostatectomy. At his request a (units unknown) (unknown) (unknown) (no date) (unknown) (unknown) impressive circumferential impingement of the bladder neck due to prostate as (units unknown) (unknown) (unknown) (no date) (unknown) (unknown) instructions explained. (units unknown) (unknown) (unknown) (no date) (unknown) (unknown) ipratropium br omide 42 mcg (0.06 %) nasal spray 2 spray intranasal TID #15 mL (units unknown) (unknown) (unknown) (no date) (unknown) (unknown) is very intere sted in series consideration of the option but wants to wait until (units unknown) (unknown) (unknown) (no date) (unknown) (unknown) marital status : (units unknown) (unknown) (unknown) (no date) (unknown) (unknown) measurements w ere made in the transverse and sagittal planes with the findings (units unknown) (unknown) (unknown) (no date) (unknown) (unknown) minutes (units unknown) (unknown) (unknown) (no date) (unknown) (unknown) number of chil dren: 3 (units unknown) (unknown) (unknown) (no date) (unknown) (unknown) occurred due t o the inherent limitations of voice recognition software. Please (units unknown) (unknown) (unknown) (no date) (unknown) (unknown) prescriptions and follow-up versus surgical intervention. Explained to him that (units unknown) (unknown) (unknown) (no date) (unknown) (unknown) read the note carefully and recognize, using context, where these substitutions (units unknown) (unknown) (unknown) (no date) (unknown) (unknown) sagittal imagi ng was obtained at multiple levels. ?Maximum dimensional (units unknown) (unknown) (unknown) (no date) (unknown) (unknown) scattered muco jono calcifications. Obstructing trilobar hyperplasia. (units unknown) (unknown) (unknown) (no date) (unknown) (unknown) software. Alth ough every effort is made to edit content, two needle machine operator errors m (units unknown) (unknown) (unknown) (no date) (unknown) (unknown) medrano and to take up the issue again in the fall and winter months. (units unknown) (unknown) (unknown) (no date) (unknown) (unknown) tadalafil (Sarah lis) 5 mg PO DAILY 90 tabs 3RF (units unknown) (unknown) (unknown) (no date) (unknown) (unknown) tadalafil 5 mg tablet (Cialis) 5 mg PO DAILY #90 tabs 04/19/23 [Rx Confirmed (units unknown) (unknown) (unknown) (no date) (unknown) (unknown) tadalafil [Sarah lis] PO 11/15/22 [History Confirmed 04/19/23] (units unknown) (unknown) (unknown) (no date) (unknown) (unknown) tamsulosin 0.4 mg capsule (Flomax) 0.8 mg PO BEDTIME #60 caps 11/15/22 [Rx (units unknown) (unknown) (unknown) (no date) (unknown) (unknown) tamsulosin, ve rses tamsulosin monotherapy alone. He request prescription refill (units unknown) (unknown) (unknown) (no date) (unknown) (unknown) telmisartan 20 mg tablet 20 mg PO DAILY #90 tabs 02/09/23 [Rx Confirmed (units unknown) (unknown) (unknown) (no date) (unknown) (unknown) thorough infor med consent was obtained explain the common side effects, possible (units unknown) (unknown) (unknown) (no date) (unknown) (unknown) transrectal ultrasound probe was inserted into the rectal vault. ?Transverse and (units unknown) (unknown) (unknown) (no date) (unknown) (unknown) ultrasound-45 minutes (units unknown) (unknown) (unknown) (no date) (unknown) (unknown) values. (units unknown) (unknown) (unknown) (no date) (unknown) (unknown) voiding patter n character are definitely better on combination of tadalafil plus (units unknown) (unknown) (unknown) (no date) (unknown) (unknown) well as a lip of intravesical median lobe occluding the outlet. No evidence of (units unknown) (unknown) (unknown) (no date) (unknown) (unknown) were prepped a nd draped in sterile fashion. ?Using sterile technique and video (units unknown) (unknown) Social History date description facility 2023-03-22 00:00 Tobacco smoking consumption unk nowcasey (finding) [facility] 2023-04-19 00:00 Tobacco smoking consumption unk nowcasey [facility] Vital Signs date measurement value units 2023-03-22 00:00 BP_diastolic 86 mmHg 2023-03-22 00:00 BP_systolic 153 mmHg 2023-03-22 00:00 heart_rate 71 /min 2023-03-22 00:00 o2_saturation 97 % 2023-03-22 00:00 respiration_rate 16 /min 2023-04-19 00:00 BP_diastolic 74 mmHg 2023-04-19 00:00 BP_systolic 175 mmHg 2023-04-19 00:00 heart_rate 70 /min 2023-04-19 00:00 o2_saturation 94 % 2023-04-19 00:00 respiration_rate 16 /min
[2023-05-27 06:13] VITALS: BP 129/90
--- NOTE | 2023-05-27 07:18 | ED Physician Documentation ---
PD HPI LOWER EXT INJURY - Stated complaint Stated Complaint: L LEG PX - Chief complaint Chief Complaint: Ext Problem - History obtained from History obtained from: Patient - History of Present Illness PD HPI LOW EXT INJURY LOCATION: Left, Lower leg Type of injury: No: Fall, Twist Timing - onset: Today (he states he awoke with pain left lower leg/calf. No edema. Had travel recently and history of DVT, so is concerned about that. No skin sores/lesions. No edema.) Timing - duration: Hours (1-2) Timing - details: Abrupt onset, Still present (though eased significantly to just mild aching of calf.) Worsened by: Moving Associated symptoms: No: Weakness, Numbness, Swelling Similar symptoms before: Diagnosis (has had DVT remotely in the past after prlonged travel.) Recently seen: Not recently seen Review of Systems Skin: denies: Rash, Lesions Musculoskeletal: denies: Extremity swelling Neurologic: denies: Focal weakness, Numbness PD PAST MEDICAL HISTORY - Past Medical History Cardiovascular: Deep vein thrombosis Respiratory: None Neuro: None Endocrine/Autoimmune: None GI: None : None HEENT: None Psych: None Musculoskeletal: None Derm: None - Past Surgical History Past Surgical History: Yes General: Appendectomy Ortho: Arthroscopic surgery - Allergies Allergies/Adverse Reactions: Allergies Allergy/AdvReac Type Severity Reaction Status Date / Time No Known Drug Allergies Allergy Verified 09/10/20 10:27 - Social History Does the pt smoke?: No Smoking Status: Never smoker Does the pt drink ETOH?: Yes Does the pt have substance abuse?: No - Immunizations Immunizations are current?: Yes - POLST Patient has POLST: No PD ED PE NORMAL - Vitals Vital signs reviewed: Yes - General General: Alert and oriented X 3, No acute distress, Well developed/nourished - Cardiac Cardiac: RRR, No murmur - Respiratory Respiratory: Clear bilaterally - Derm Derm: Normal color, Warm and dry, No rash - Extremities Extremities: No edema, Other (some tenderness left calf without edema, swelling. Good DP pulse and color/cap refill in toes. Normal flex /ext at ankle iwth firm/nontender achilles. ) Results - Vitals Vitals: Vital Signs - 24 hr 05/27/23 06:03 Temperature 98.0 C H Heart Rate 7 L Respiratory 17 Rate Blood Pressure 129/90 H O2 Saturation 94 Oxygen O2 Source Room air - Rads (name of study) left leg Duplex. Relevant Findings:: Prelim report reviewed, Other (US Tech - no DVT. ) PD Medical Decision Making - ED course Complexity details: reviewed results (US shows no DVT. ), considered differential, d/w patient ED course: pain in lower leg earlier. Mild ache still. Consider muscle spasm. will want to exclude DVT. No edema. Has good pulses and cap refill, so does not appear mal rial insufficiency. Departure - Departure Disposition: 01 Home, Self Care Clinical Impression: Muscle spasm of left calf Lower leg pain Qualifiers: Laterality: left Qualified Code(s): M79.662 - Pain in left lower leg Condition: Stable Record reviewed to determine appropriate education?: Yes Instructions: ED Strain Muscle Ext Comments: Your ultrasound is negative without any signs of blood clots. On exam I do not get the sense of anything more significant at this time. You seem to have good pulses and color. There is no swelling or obvious skin rash or injury. The muscle seems normal in that area. Consideration would be a muscle strain with inflammation or some muscle spasms. See how this does over the next few days. I would suggest some anti- inflammatory such as ibuprofen or naproxen. Add Tylenol if needed for pains. If this just decreases and resolves over the next several days then that would be more consistent with a muscle strain or spasm. Recheck if the pain persist despite time or if other symptoms develop. Discharge Date/Time: 05/27/23 08:10
[2023-05-27] MEDS ORDERED: IBUPROFEN 600 MG TABLET PO STA (08:03)
[2023-05-27] MEDS ORDERED: methocarbamoL 500 MG TABLET PO STA (08:03)
--- NOTE | 2023-05-27 08:55 | Ultrasound Report ---
PROCEDURE: Duplex Ext Veins Left INDICATIONS: LLE pain, swelling TECHNIQUE: Real-time imaging, as well as color and pulse Doppler interrogation, were performed of the lower extr emity deep veins from the inguinal ligament to the popliteal fossa. COMPARISON: None. FINDINGS: The deep veins are normally compressible, and free of intraluminal thrombus. Color and pu lse Doppler demonstrate normal phasic intraluminal flow. There is normal augmentation response to di stal compression maneuver. IMPRESSION: Negative left lower extremity duplex venous ultrasound for DVT. Reviewed by: Rich Brody MD on 05/27/2023 8:53 AM PDT Approved by: Rich Brody MD on 05/27/2023 8:53 AM PDT Station ID: [id number]
== END 2023-05-27 08:10 | disposition home or self-care (01) ==
LOC: ED 05:56
DX: M62.831 Muscle spasm of calf (principal)
CPT/HCPCS: 93971; 99283; 99284; A9270

== ENCOUNTER 2024-01-23 10:35 | Outpatient (CLI) | payer MEDICARE, OTHER ==
[2024-01-23 10:47] LABS: BASOPHILS % (AUTO) 0.5 %; EOSINOPHILS # (AUTO) 0.1 10^3/uL (0.0-0.7); EOSINOPHILS % (AUTO) 2.2 %; HCT - HEMATOCRIT 47.5 % (42.0-52.0); HGB - HEMOGLOBIN 15.8 g/dL (14.0-18.0); LYMPHOCYTES # (AUTO) 1.4 10^3/uL (1.5-3.5); LYMPHOCYTES % (AUTO) 26.2 %; MEAN CORPUSCULAR HEMOGLOBIN 30.1 pg (27.0-31.0); MEAN CORPUSCULAR HGB CONC 33.3 g/dL (32.0-36.0); MEAN CORPUSCULAR VOLUME 90.5 fL (80.0-94.0); MEAN PLATELET VOLUME 9.7 fL (7.4-11.4); MONOCYTES # (AUTO) 0.4 10^3/uL (0.0-1.0); MONOCYTES % (AUTO) 6.9 %; NEUTROPHILS # (AUTO) 3.5 10^3/uL (1.5-6.6); PLT - PLATELET COUNT 331 10^3/uL (130-450); RED BLOOD COUNT 5.25 10^6/uL (4.70-6.10); RED CELL DISTRIBUTION WIDTH 13.7 % (12.0-15.0); WHITE BLOOD COUNT 5.5 x10^3/uL (4.8-10.8)
[2024-01-23 11:00] LABS: CALCIUM 9.8 mg/dL (8.5-10.3); CREATININE 1.2 mg/dL (0.6-1.3); POTASSIUM 4.4 mmol/L (3.5-4.5)
== END 2024-01-23 10:36 | disposition home or self-care (01) ==
LOC: LAB 10:35
PROVIDERS: ATTEND Urology
DX: N40.1 Benign prostatic hyperplasia with lower urinary tract symptoms (principal); N13.8 Other obstructive and reflux uropathy
CPT/HCPCS: 36415; 80048; 85025; 87086

== ENCOUNTER 2024-06-02 08:57 | Emergency (ER) | payer MEDICARE, OTHER ==
[2024-06-02 09:24] VITALS: BP 152/82; O2SAT 96
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
[2024-06-02 10:24] LABS: BASOPHILS % (AUTO) 0.3 %; EOSINOPHILS # (AUTO) 0.1 10^3/uL (0.0-0.7); EOSINOPHILS % (AUTO) 2.2 %; HGB - HEMOGLOBIN 16.3 g/dL (14.0-18.0); LYMPHOCYTES # (AUTO) 1.8 10^3/uL (1.5-3.5); LYMPHOCYTES % (AUTO) 28.8 %; MEAN CORPUSCULAR HEMOGLOBIN 30.3 pg (27.0-31.0); MEAN CORPUSCULAR VOLUME 89.2 fL (80.0-94.0); MEAN PLATELET VOLUME 9.8 fL (7.4-11.4); MONOCYTES # (AUTO) 0.4 10^3/uL (0.0-1.0); MONOCYTES % (AUTO) 6.6 %; NEUTROPHILS # (AUTO) 3.9 10^3/uL (1.5-6.6); NEUTROPHILS % (AUTO) 61.6 %; PLT - PLATELET COUNT 381 10^3/uL (130-450); RED BLOOD COUNT 5.38 10^6/uL (4.70-6.10); RED CELL DISTRIBUTION WIDTH 13.9 % (12.0-15.0); WHITE BLOOD COUNT 6.4 x10^3/uL (4.8-10.8)
[2024-06-02 10:33] LABS: ALBUMIN 4.2 g/dL (3.2-5.5); ALBUMIN/GLOBULIN RATIO 1.6 (1.0-2.2); BILIRUBIN,TOTAL 0.9 mg/dL (0.2-1.0); CALCIUM 10.1 mg/dL (8.5-10.3); POTASSIUM 4.5 mmol/L (3.5-4.5); TOTAL PROTEIN 6.9 g/dL (6.4-8.9)
--- NOTE | 2024-06-02 11:26 | Ultrasound Report ---
PROCEDURE: Duplex Ext Veins Left INDICATIONS: prior dvt/pe L calf cramping TECHNIQUE: Real-time imaging, as well as color and pulse Doppler interrogation, were performed of the lower extr emity deep veins from the inguinal ligament to the popliteal fossa. Attempted visualization of the ca lf veins was performed. COMPARISON: Ultrasound duplex 02/14/2023 FINDINGS: The deep veins are normally compressible, and free of intraluminal thrombus. Color and pu lse Doppler demonstrate normal phasic intraluminal flow. There is normal augmentation response to di stal compression maneuver. IMPRESSION: No deep venous thrombosis of the visualized lower extremity. Reviewed by: Siena Eden MD on 06/02/2024 11:25 AM PDT Approved by: Siena Eden MD on 06/02/2024 11:25 AM PDT Station ID: [id number]
== END 2024-06-02 11:51 | disposition home or self-care (01) ==
LOC: ED 08:57
DX: E86.0 Dehydration (principal); Z86.711 Personal history of pulmonary embolism; Z86.718 Personal history of other venous thrombosis and embolism
CPT/HCPCS: 36415; 80053; 83690; 85025; 85379; 99283; 99284